=== PATIENT | male | born 1970 | race Caucasian/White ===

== ENCOUNTER 2019-04-21 10:25 | Emergency (ER) | payer OTHER, MEDICAID, SELFPAY ==
[2019-04-21 10:47] VITALS: BP 128/86; PULSE 86; RESP 18; TEMP 36.4; O2SAT 98; BMI 23.9
[2019-04-21 12:57] LABS: Add Manual Diff / Slide Review NO; Basophils Absolute Auto 0 /uL (0-100); Basophils Percent Auto 0.1 % (0-2); Eosinophils Absolute Auto 100 /uL (0-450); Eosinophils Percent Auto 0.4 % (2-4); Hemoglobin 12.5 g/dL (13.5-17.5); Lymphocytes Absolute Auto 2500 /uL (1100-4500); Lymphocytes Percent Auto 13.4 % (25-40); Mean Corpuscular Hemoglobin 28.2 PG (26-34); Mean Corpuscular Volume 85.3 fL (80-100); Monocytes Absolute Auto 1200 /uL (0-900); Monocytes Percent Auto 6.4 % (3-14); Neutrophils Absolute Auto 14700 /uL (1500-7000); Neutrophils Percent Auto 79.7 % (50-75); Platelet Count 622 X10^3/uL (150-400); Red Blood Cell Count 4.45 X10^6/uL (4.5-5.9); White Blood Cell Count 18.4 X10^3/uL (4.5-11.0)
[2019-04-21 13:02] VITALS: BP 131/80; PULSE 73; RESP 17; O2SAT 97
[2019-04-21 13:09] LABS: Alanine Aminotransferase 35 IU/L (21-72); Albumin 3.8 g/dL (3.5-5.0); Albumin Globulin Ratio 0.9 (1.0-2.8); Alkaline Phosphatase 212 U/L (38-126); Aspartate Aminotransferase 29 IU/L (17-59); BUN Creatinine Ratio 44.3 (6-22); Bilirubin Total 0.6 mg/dL (0.2-1.3); Blood Urea Nitrogen 31 mg/dL (9-20); Calcium 9.8 mg/dL (8.4-10.2); Carbon Dioxide 22 mmol/L (22-32); Chloride 95 mmol/L (98-107); Estimated Glomerular Filt Rate > 60.0 mL/min (>60); Globulin 4.2 g/dL (1.7-4.1); HEMOLYSIS < 15 (0-50); Potassium 5.1 mmol/L (3.4-5.1); Sodium 128 mmol/L (137-145)
[2019-04-21 13:40] LABS: Erythrocyte Sedimentation Rate 60 MM/HR (0-15)
[2019-04-21 13:47] LABS: Glucose 497 mg/dL (70-100)
[2019-04-21 14:02] LABS: Procalcitonin 0.05 ng/mL (<0.5)
--- NOTE | 2019-04-21 14:51 | ED_ITS ---
HPI - Wound/Laceration <PRASHANT Roblero - Last Filed: 04/21/19 20:25> General Chief Complaint: Wound/Laceration Stated Complaint: RT WRIST PAIN AFTER SURGERY Time Seen by Provider: 04/21/19 12:26 Source: patient Mode of arrival: Ambulatory Limitations: no limitations History of Present Illness HPI narrative: The patient is a 48-year-old male current smoker who presents who with a chief complaint of needing his lab work checked. He states that he was discharged from [facility] on the 10th after surgery on his wrist. He states he had an abscess on his right wrist. He states he has had 2 surgeries for this, and was supposed to follow up with [facility] Dr Richter today at 10:00 a.m.. However he went to the office and was closed for the holiday. He denies any fevers nausea vomiting or diarrhea. He states he has been taking Levaquin as instructed on discharge. He is requesting that we debride his wound. He states he would like us to check his white blood cell count, as he is concerned about sepsis. He states he has been eating and drinking well. He states tomorrow is the last day of his prednisone burst. Related Data Home Medications Medication Instructions Recorded Confirmed levofloxacin 750 mg PO DAILY 04/21/19 04/21/19 lisinopril 40 mg PO DAILY 04/21/19 04/21/19 oxycodone-acetaminophen 1 tab PO Q6H PRN 04/21/19 04/21/19 prednisone See Rx Instructions .ROUTE .COMPLEX 04/21/19 Previous Rx's Medication Instructions Recorded metformin 500 mg PO BID #30 tab 04/21/19 Allergies Allergy/AdvReac Type Severity Reaction Status Date / Time Penicillins Allergy Rash Verified 04/21/19 10:57 Review of Systems <PRASHANT Roblero - Last Filed: 04/21/19 20:25> Review of Systems Narrative: GENERAL: Denies chills, fatigue, malaise, fever, sweats. HEENT: Denies sinus pain, ear pain, sore throat, difficulty swallowing, dizziness. RESPIRATORY: Denies dyspnea, cough, wheezing, hemoptysis, sputum. CARDIOVASCULAR: Denies chest pain, palpitations, orthopnea, edema, GASTROINTESTINAL: Denies nausea, vomiting, abdominal pain, diarrhea, constipation, melena. : Denies dysuria, frequency, incontinence, hematuria, urinary retention. MUSCULOSKELETAL: See HPI SKIN: HPI NEUROLOGIC: Denies weakness, headache, numbness, change in speech, confusion, seizures, incoordination. PSYCHIATRIC: No concerning psychosocial issues. 12 point review of systems is negative except for those stated above Exam <Leanne AguilarINDIRA prestonP-BC - Last Filed: 04/21/19 20:25> Narrative Exam Narrative: GENERAL: This is a well-nourished, well-developed patient, no acute distress HEAD: Atraumatic. Normocephalic. No temporal or scalp tenderness. EYES: Pupils equal round and reactive. Extraocular motions intact. No scleral icterus. No injection or drainage. ENT: Nose without bleeding, purulent drainage or septal hematoma. Throat without erythema, tonsillar hypertrophy or exudate. Uvula midline. Airway patent. NECK: Trachea midline. No JVD or lymphadenopathy. Supple, nontender, no meninge al signs. CARDIOVASCULAR: Regular rate and rhythm without murmurs, gallops, or rubs. RESPIRATORY: Clear to auscultation. Breath sounds equal bilaterally. No wheezes, rales, or rhonchi. No cough. No increased respiratory effort. No accessory muscle use GASTROINTESTINAL: Abdomen soft, non-tender, nondistended. No hepato- splenomegaly, or palpable masses. No guarding. EXTREMITIES: 10 cm postoperative wound on anterior aspect of right wrist. Sutures are intact. No extending redness. 0.25 cm separation of. Slight purulence drainage noted. 7 cm on palmar aspect of right wrist. Well approxim ated. No spreading redness. No drainage noted. Positive radial pulse right wrist. Moving right fingers. Decreased flexion extension right wrist. Capillary refill less than 2 seconds all fingers right hand. BACK: Nontender without deformity or crepitance. No flank tenderness. NEURO: AOx3. SKIN: See extremity exam Initial Vital Signs Initial Vital Signs: Vital Signs Temperature 97.5 F L 04/21/19 10:47 Pulse Rate 86 04/21/19 10:47 Respiratory Rate 18 04/21/19 10:47 Blood Pressure 128/86 04/21/19 10:47 Pulse Oximetry 98 04/21/19 10:47 <Jarek Saucedo DO - Last Filed: 04/22/19 07:04> Initial Vital Signs Initial Vital Signs: Vital Signs Temperature 97.5 F L 04/21/19 10:47 Pulse Rate 86 04/21/19 10:47 Respiratory Rate 18 04/21/19 10:47 Blood Pressure 128/86 04/21/19 10:47 Pulse Oximetry 98 04/21/19 10:47 Course <SEAN Roblero - Last Filed: 04/21/19 20:25> Orders Ordered: ED Orders 04/21/19 12:50 C-Reactive Protein Quant Stat Complete Blood Count AUTO DIFF Stat Comprehensive Metabolic Panel Stat Erythrocyte Sedimentation Rate Stat Procalcitonin Stat Vital Signs Vital signs: Vital Signs - 8 hr 04/21/19 13:02 04/21/19 15:32 Pulse Rate 73 73 Respiratory Rate 17 17 Blood Pressure [Left Arm] 131/80 142/88 H Pulse Oximetry 97 98 <Jarek Saucedo DO - Last Filed: 04/22/19 07:04> Orders Ordered: ED Orders 04/21/19 12:50 C-Reactive Protein Quant Stat Complete Blood Count AUTO DIFF Stat Comprehensive Metabolic Panel Stat Erythrocyte Sedimentation Rate Stat Procalcitonin Stat Vital Signs Vital signs: Vital Signs - 8 hr 04/21/19 13:02 04/21/19 15:32 Pulse Rate 73 73 Respiratory Rate 17 17 Blood Pressure [Left Arm] 131/80 142/88 H Pulse Oximetry 97 98 MDM - Wound/Laceration <SEAN Roblero - Last Filed: 04/21/19 20:25> Lab Data Result diagrams: 04/21/19 12:50 04/21/19 12:50 Labs: Lab Results 04/21/19 04/21/19 04/21/19 Range/Units 12:50 12:50 12:50 WBC 18.4 H (4.5-11.0) X10^3/uL RBC 4.45 L (4.5-5.9) X10^6/uL Hgb 12.5 L (13.5-17.5) g/dL Hct 38.0 L (41-53) % MCV 85.3 (80-100) fL MCH 28.2 (26-34) PG MCHC 33.0 (30-36) % RDW 16.0 H (11.6-14.8) % Plt Count 622 H (150-400) X10^3/uL Neut % (Auto) 79.7 H (50-75) % Lymph % (Auto) 13.4 L (25-40) % Logan % (Auto) 6.4 (3-14) % Eos % (Auto) 0.4 L (2-4) % Baso % (Auto) 0.1 (0-2) % Neut # (Auto) 41587 H (1363-3397) /uL Lymph # (Auto) 2500 (4901-5462) /uL Logan # (Auto) 1200 H (0-900) /uL Eos # (Auto) 100 (0-450) /uL Baso # (Auto) 0 (0-100) /uL ESR 60 H (0-15) MM/HR Sodium 128 L (137-145) mmol/L Potassium 5.1 (3.4-5.1) mmol/L Chloride 95 L (98-107) mmol/L Carbon Dioxide 22 (22-32) mmol/L BUN 31 H (9-20) mg/dL Creatinine 0.70 (0.66-1.25) mg/dL Estimated GFR > 60.0 (>60) mL/min BUN/Creatinine Ratio 44.3 H (6-22) Glucose 497 H* (70-100) mg/dL Calcium 9.8 (8.4-10.2) mg/dL Total Bilirubin 0.6 (0.2-1.3) mg/dL AST 29 (17-59) IU/L ALT 35 (21-72) IU/L Alkaline Phosphatase 212 H (38-126) U/L C-Reactive Protein 0.7 (<1.0) mg/dL Total Protein 8.0 (6.3-8.2) g/dL Albumin 3.8 (3.5-5.0) g/dL Globulin 4.2 H (1.7-4.1) g/dL Albumin/Globulin Ratio 0.9 L (1.0-2.8) Procalcitonin 0.05 (<0.5) ng/mL [facility] Narrative Medical decision making narrative: The patient is a 48-year-old male who presents with a chief complaint of requesting lab work and postoperative infection. I discussed that we could get lab work, but I would have to refer to [facility] for procedures. The patient has leukocytosis, and an elevated ESR, however it is lower than his previous level. His CRP is also significantly decreased. His procalcitonin is negative for sepsis. The patient does not appear septic, he is normotensive, afebrile, non tachycardic. I discussed the patient at length with Dr. Richter from [facility], who states that the patient can see him in follow-up tomorrow at 10:00 a.m.. Of note the patient was noted to be hyperglycemic on his lab work. This is likely partially due to his infection and partially due to his steroid burst, which likely exacerbated an underlying hyperglycemia or diabetes. I ink give the patient a prescription for metformin. I discussed at length the importance of follow-up with his primary care provider. He has an appointment for 4 days from now. I discussed at length follow up with Orthopedics in PCP. Discussed coming back to the emergency department for any acute concerns such as chest pain, shortness of breath, inability keep down fluids etc. Patient has no questions or concerns upon discharge and states understanding of return precautions as well as follow-up care. <Jarek Saucedo, DO - Last Filed: 04/22/19 07:04> Lab Data Labs: Lab Results 04/21/19 04/21/19 04/21/19 Range/Units 12:50 12:50 12:50 WBC 18.4 H (4.5-11.0) X10^3/uL RBC 4.45 L (4.5-5.9) X10^6/uL Hgb 12.5 L (13.5-17.5) g/dL Hct 38.0 L (41-53) % MCV 85.3 (80-100) fL MCH 28.2 (26-34) PG MCHC 33.0 (30-36) % RDW 16.0 H (11.6-14.8) % Plt Count 622 H (150-400) X10^3/uL Neut % (Auto) 79.7 H (50-75) % Lymph % (Auto) 13.4 L (25-40) % Logan % (Auto) 6.4 (3-14) % Eos % (Auto) 0.4 L (2-4) % Baso % (Auto) 0.1 (0-2) % Neut # (Auto) 96483 H (3332-0819) /uL Lymph # (Auto) 2500 (4479-1764) /uL Logan # (Auto) 1200 H (0-900) /uL Eos # (Auto) 100 (0-450) /uL Baso # (Auto) 0 (0-100) /uL ESR 60 H (0-15) MM/HR Sodium 128 L (137-145) mmol/L Potassium 5.1 (3.4-5.1) mmol/L Chloride 95 L (98-107) mmol/L Carbon Dioxide 22 (22-32) mmol/L BUN 31 H (9-20) mg/dL Creatinine 0.70 (0.66-1.25) mg/dL Estimated GFR > 60.0 (>60) mL/min BUN/Creatinine Ratio 44.3 H (6-22) Glucose 497 H* (70-100) mg/dL Calcium 9.8 (8.4-10.2) mg/dL Total Bilirubin 0.6 (0.2-1.3) mg/dL AST 29 (17-59) IU/L ALT 35 (21-72) IU/L Alkaline Phosphatase 212 H (38-126) U/L C-Reactive Protein 0.7 (<1.0) mg/dL Total Protein 8.0 (6.3-8.2) g/dL Albumin 3.8 (3.5-5.0) g/dL Globulin 4.2 H (1.7-4.1) g/dL Albumin/Globulin Ratio 0.9 L (1.0-2.8) Procalcitonin 0.05 (<0.5) ng/mL Discharge Plan Departure Patient Disposition: Home Clinical Impression: Encounter for wound re-check, Elevated blood sugar Discharge Date/Time: 04/21/19 15:40 Instructions: DI for Hyperglycemia -- Adult, DI for Wound Infection Activity Restrictions/Additional Instructions: Overall your lab work today is reassuring. However we found your blood sugar to be very elevated. I have given you a prescription for metformin to help keep your blood sugar in the normal range. Please follow up with Orthopedics at 10:00 a.m. as they arranged. Please follow up with primary care provider in a few days as previously arranged. Please monitor for signs of worsening including fever, inability keep down fluids etc Please come back to emergency department for any acute concerns. Prescriptions: New metformin 500 mg tablet 500 mg PO BID Qty: 30 RF: 0 No Action prednisone 10 mg tablet See Rx Instructions .ROUTE .COMPLEX RF: 0 oxycodone-acetaminophen 10-325 mg tablet 1 tab PO Q6H PRN (Reason: pain) RF: 0 levofloxacin 750 mg tablet 750 mg PO DAILY RF: 0 lisinopril 40 mg tablet 40 mg PO DAILY RF: 0 <Jarek Saucedo DO - Last Filed: 04/22/19 07:04> Sign Out Provider Sign Out Attestation: I was available for consultation during this patient's emergency department visit. This chart is signed by myself for administrative purposes only. I did not have direct contact with this patient during this visit. They were seen independently by the APC.
[2019-04-21 14:59] LABS: C-Reactive Protein Quant 0.7 mg/dL (<1.0)
[2019-04-21 15:32] VITALS: BP 142/88; PULSE 73; RESP 17; O2SAT 98
== END 2019-04-21 15:40 | disposition home or self-care (01) ==
PROVIDERS: Emergency Provider Nurse Practitioner Family
DX: Z51.89 Encounter for other specified aftercare (principal); M25.531 Pain in right wrist; R73.9 Hyperglycemia, unspecified
CPT/HCPCS: 36415; 80053; 84145; 85025; 85651; 86140; 99283

== ENCOUNTER 2019-04-22 08:58 | Inpatient (IN) | payer OTHER, MEDICAID, SELFPAY ==
[2019-04-22] VITALS (22 sets, daily range): BP systolic 92–149; BP diastolic 54–81; PULSE 66–91; RESP 12–20; TEMP 36.3–37.2; O2SAT 92–100; BMI 24.0
--- NOTE | 2019-04-22 09:08 | ED.GENADULT ---
HPI - General Adult General Chief complaint: Extremity Injury, Upper Stated complaint: nausea/vomiting/right arm pain Time Seen by Provider: 04/22/19 09:00 Source: patient Mode of arrival: Ambulatory Limitations: no limitations History of Present Illness HPI narrative: Patient is a 48-year-old male with a known right wrist wound that is being managed by the Orthopedic Department at [facility]. He was seen here in the emergency department yesterday because he could not get in to see them because the office was closed for the holiday. During his visit yesterday patient was noted to be hyperglycemic. He has no prior diagnosis of diabetes. Was started on metformin. Took 1 dose of this last evening. The provider who saw him yesterday did get him set up with another appointment today at 1000 hours with the Orthopedic Department. Patient comes the emergency department today because this morning he states that he ?felt sick ?had nausea and vomiting. Does have pain in his right wrist. Related Data Home Medications Medication Instructions Recorded Confirmed levofloxacin 750 mg PO DAILY 04/21/19 04/22/19 lisinopril 40 mg PO DAILY 04/21/19 04/22/19 oxycodone-acetaminophen 1 tab PO Q6H PRN 04/21/19 04/22/19 prednisone See Rx Instructions .ROUTE .COMPLEX 04/21/19 04/22/19 Previous Rx's Medication Instructions Recorded metformin 500 mg PO BID #30 tab 04/21/19 Allergies Allergy/AdvReac Type Severity Reaction Status Date / Time Penicillins Allergy Rash Verified 04/21/19 10:57 Review of Systems Constitutional Constitutional: Reports body ache(s) and Denies fever(s) Cardiovascular Cardiovascular: Denies chest pain and Denies dyspnea Respiratory Respiratory: Denies dyspnea Gastrointestinal Gastrointestinal: Reports nausea and Reports vomiting Musculoskeletal Comments: Right wrist pain Integumentary/Breasts Comments: Open wound to the right wrist Hematologic/Lymphatic Hematologic/Lymphatic: Denies easy bleeding and Denies easy bruising Patient History Medical History Medical History Elevated blood sugar (Inactive) Social History Social History marital status: household members: significant other lives independently: Yes Exam Initial Vital Signs Initial Vital Signs: Vital Signs Temperature 97.3 F L 04/22/19 09:36 Pulse Rate 91 H 04/22/19 09:36 Respiratory Rate 20 04/22/19 09:36 Blood Pressure 92/69 04/22/19 09:36 Pulse Oximetry 97 04/22/19 09:36 Const General: disheveled and No ill appearing Orientation: alert and awake [facility] Head: normal to inspection and normocephalic Resp Effort & Inspection: normal respiratory effort Auscultation: clear to auscultation bilaterally Cardio Rate: regular rate Rhythm: regular rhythm GI Inspection: non-distended Palpation: soft, No firm and No tender Skin Other: Patient with a open wound on the dorsum of his right wrist. Is not actively bleeding. Does have granulation tissue. Mattress sutures in place. Neuro General: alert and awake Cognition: normal cognition Speech: speech normal Extrem General: capillary refill normal Psych Appearance: grossly normal and well kempt Course Orders Ordered: ED Orders 04/22/19 10:22 C-Reactive Protein Quant Stat Erythrocyte Sedimentation Rate Stat 04/22/19 11:48 CT UE RT w con Stat Fentanyl (Sublimaze) 50 mcg IV Q5MIN PRN PRN Reason: Pain, Moderate (4-6) Lactated Ringer's (Lactated Ringers) 1,000 mls @ 100 mls/hr IV NOW ONE Stop: 04/23/19 02:41 Last Admin: 04/22/19 17:05 Dose: 100 mls/hr Documented by: Infusion: 04/22/19 17:05 Dose: 100 mls/hr Documented by: Admin: 04/22/19 16:43 Dose: 100 mls/hr Documented by: KEVIN Metoclopramide HCl (Reglan) 10 mg IV NOW PRN PRN Reason: Nausea And Vomiting Ondansetron HCl (Zofran) 4 mg IV NOW PRN PRN Reason: Nausea And Vomiting Discontinued Medications Sodium Chloride 3,000 ml/ (Gentamicin Sulfate 240 mg) 0 ml IRR NOW ONE Stop: 04/22/19 17:09 Last Admin: 04/22/19 17:08 Dose: 3,006 ml Documented by: VIKTORIYA Hydromorphone HCl (Dilaudid) 0.5 mg IV Q5MIN PRN PRN Reason: Pain, Moderate (4-6) Last Admin: 04/22/19 18:20 Dose: 0.5 mg Documented by: Admin: 04/22/19 18:15 Dose: 0.5 mg Documented by: Admin: 04/22/19 18:10 Dose: 0.5 mg Documented by: Admin: 04/22/19 18:05 Dose: 0.5 mg Documented by: Admin: 04/22/19 18:00 Dose: 0.5 mg Documented by: Admin: 04/22/19 17:55 Dose: 0.5 mg Documented by: Admin: 04/22/19 17:50 Dose: 0.5 mg Documented by: Admin: 04/22/19 17:45 Dose: 0.5 mg Documented by: ROSIO Sodium Chloride (Normal Saline 0.9%) 1,000 mls @ 1,000 mls/hr IV BOLUS ONE Stop: 04/22/19 10:05 Last Infusion: 04/22/19 10:48 Dose: 0 mls/hr Documented by: Admin: 04/22/19 09:30 Dose: 1,000 mls/hr Documented by: LETI Vancomycin HCl (Vancomycin) 1,000 mg in 200 mls @ 200 mls/hr IV NOW ONE Stop: 04/22/19 17:09 Last Admin: 04/22/19 17:21 Dose: 200 mls/hr Documented by: ELIZABETH Ketorolac Tromethamine (Toradol) 30 mg IV NOW ONE Stop: 04/22/19 11:57 Last Admin: 04/22/19 12:08 Dose: 30 mg Documented by: LETI Morphine Sulfate (Morphine) 4 mg IV NOW ONE Stop: 04/22/19 15:36 Last Admin: 04/22/19 15:44 Dose: 4 mg Documented by: LETI Ondansetron HCl (Zofran) 4 mg IV NOW ONE Stop: 04/22/19 09:07 Last Admin: 04/22/19 09:30 Dose: 4 mg Documented by: LETI Oxycodone/Acetaminophen (Percocet 5/325) 1 tab PO NOW ONE Stop: 04/22/19 15:36 Vital Signs Vital signs: Vital Signs - 8 hr 04/22/19 11:37 04/22/19 12:30 04/22/19 14:35 Temperature Pulse Rate 88 68 82 Respiratory Rate 18 18 18 Blood Pressure Blood Pressure [Left Arm] 104/70 114/67 106/67 Pulse Oximetry 100 97 04/22/19 15:00 04/22/19 15:47 Temperature 97.8 F Pulse Rate 81 77 Respiratory Rate 16 16 Blood Pressure 102/79 Blood Pressure [Left Arm] 107/70 Pulse Oximetry 92 97 Medical Decision Making Lab Data Lab results reviewed: Yes I reviewed the patient's lab results. Result diagrams: 04/22/19 09:26 04/22/19 09:26 Labs: Lab Results 04/22/19 04/22/19 04/22/19 Range/Units 09:22 09:26 09:26 WBC 22.0 H (4.5-11.0) X10^3/uL RBC 4.64 (4.5-5.9) X10^6/uL Hgb 13.0 L (13.5-17.5) g/dL Hct 39.1 L (41-53) % MCV 84.3 (80-100) fL MCH 28.0 (26-34) PG MCHC 33.2 (30-36) % RDW 15.7 H (11.6-14.8) % Plt Count 711 H (150-400) X10^3/uL Neut % (Auto) 71.6 (50-75) % Lymph % (Auto) 19.5 L (25-40) % Douglas % (Auto) 7.9 (3-14) % Eos % (Auto) 0.5 L (2-4) % Baso % (Auto) 0.5 (0-2) % Neut # (Auto) 30187 H (9920-4452) /uL Lymph # (Auto) 4300 (9191-4583) /uL Douglas # (Auto) 1700 H (0-900) /uL Eos # (Auto) 100 (0-450) /uL Baso # (Auto) 100 (0-100) /uL Platelet Estimate Increased on smear RBC Morphology See Poikilocytosis 1+ H ESR (0-15) MM/HR VBG pH 7.36 (7.33-7.43) VBG pCO2 37.6 L (45-50) mmHg VBG pO2 52 H (35-45) mmHg VBG HCO3 21 L (23-28) mmol/L VBG Total CO2 23 L (24-29) mmol/L VBG O2 Saturation 85 H (70-75) % VBG Base Excess -4.0 L (0-4) mmol/L Sodium (137-145) mmol/L Potassium (3.4-5.1) mmol/L Chloride (98-107) mmol/L Carbon Dioxide (22-32) mmol/L BUN (9-20) mg/dL Creatinine (0.66-1.25) mg/dL Estimated GFR (>60) mL/min BUN/Creatinine Ratio (6-22) Glucose (70-100) mg/dL Lactate (0.7-2.1) mmol/L Calcium (8.4-10.2) mg/dL Phosphorus (2.5-4.5) mg/dL Magnesium (1.6-2.3) mg/dL Total Bilirubin (0.2-1.3) mg/dL AST (17-59) IU/L ALT (21-72) IU/L Alkaline Phosphatase (38-126) U/L C-Reactive Protein (<1.0) mg/dL Total Protein (6.3-8.2) g/dL Albumin (3.5-5.0) g/dL Globulin (1.7-4.1) g/dL Albumin/Globulin Ratio (1.0-2.8) Lipase (23-300) U/L Procalcitonin 0.15 (<0.5) ng/mL Ketones (<0.27) mmol/L 04/22/19 04/22/19 04/22/19 Range/Units 09:26 09:26 09:26 WBC (4.5-11.0) X10^3/uL RBC (4.5-5.9) X10^6/uL Hgb (13.5-17.5) g/dL Hct (41-53) % MCV (80-100) fL MCH (26-34) PG MCHC (30-36) % RDW (11.6-14.8) % Plt Count (150-400) X10^3/uL Neut % (Auto) (50-75) % Lymph % (Auto) (25-40) % Douglas % (Auto) (3-14) % Eos % (Auto) (2-4) % Baso % (Auto) (0-2) % Neut # (Auto) (2730-8132) /uL Lymph # (Auto) (2119-5158) /uL Douglas # (Auto) (0-900) /uL Eos # (Auto) (0-450) /uL Baso # (Auto) (0-100) /uL Platelet Estimate RBC Morphology Poikilocytosis ESR (0-15) MM/HR VBG pH (7.33-7.43) VBG pCO2 (45-50) mmHg VBG pO2 (35-45) mmHg VBG HCO3 (23-28) mmol/L VBG Total CO2 (24-29) mmol/L VBG O2 Saturation (70-75) % VBG Base Excess (0-4) mmol/L Sodium 133 L (137-145) mmol/L Potassium 4.5 (3.4-5.1) mmol/L Chloride 99 (98-107) mmol/L Carbon Dioxide 22 (22-32) mmol/L BUN 35 H (9-20) mg/dL Creatinine 1.40 H (0.66-1.25) mg/dL Estimated GFR 53.6 L (>60) mL/min BUN/Creatinine Ratio 25.0 H (6-22) Glucose 250 H D (70-100) mg/dL Lactate 2.7 H (0.7-2.1) mmol/L Calcium 10.1 (8.4-10.2) mg/dL Phosphorus 5.3 H (2.5-4.5) mg/dL Magnesium 1.7 (1.6-2.3) mg/dL Total Bilirubin 0.7 (0.2-1.3) mg/dL AST 37 (17-59) IU/L ALT 31 (21-72) IU/L Alkaline Phosphatase 207 H (38-126) U/L C-Reactive Protein (<1.0) mg/dL Total Protein 7.9 (6.3-8.2) g/dL Albumin 3.9 (3.5-5.0) g/dL Globulin 4.0 (1.7-4.1) g/dL Albumin/Globulin Ratio 1.0 (1.0-2.8) Lipase 88 (23-300) U/L Procalcitonin (<0.5) ng/mL Ketones 0.13 (<0.27) mmol/L 04/22/19 04/22/19 04/22/19 Range/Units 10:22 10:22 11:43 WBC (4.5-11.0) X10^3/uL RBC (4.5-5.9) X10^6/uL Hgb (13.5-17.5) g/dL Hct (41-53) % MCV (80-100) fL MCH (26-34) PG MCHC (30-36) % RDW (11.6-14.8) % Plt Count (150-400) X10^3/uL Neut % (Auto) (50-75) % Lymph % (Auto) (25-40) % Douglas % (Auto) (3-14) % Eos % (Auto) (2-4) % Baso % (Auto) (0-2) % Neut # (Auto) (6376-1272) /uL Lymph # (Auto) (9704-3582) /uL Douglas # (Auto) (0-900) /uL Eos # (Auto) (0-450) /uL Baso # (Auto) (0-100) /uL Platelet Estimate RBC Morphology Poikilocytosis ESR 57 H (0-15) MM/HR VBG pH (7.33-7.43) VBG pCO2 (45-50) mmHg VBG pO2 (35-45) mmHg VBG HCO3 (23-28) mmol/L VBG Total CO2 (24-29) mmol/L VBG O2 Saturation (70-75) % VBG Base Excess (0-4) mmol/L Sodium (137-145) mmol/L Potassium (3.4-5.1) mmol/L Chloride (98-107) mmol/L Carbon Dioxide (22-32) mmol/L BUN (9-20) mg/dL Creatinine (0.66-1.25) mg/dL Estimated GFR (>60) mL/min BUN/Creatinine Ratio (6-22) Glucose (70-100) mg/dL Lactate 1.7 (0.7-2.1) mmol/L Calcium (8.4-10.2) mg/dL Phosphorus (2.5-4.5) mg/dL Magnesium (1.6-2.3) mg/dL Total Bilirubin (0.2-1.3) mg/dL AST (17-59) IU/L ALT (21-72) IU/L Alkaline Phosphatase (38-126) U/L C-Reactive Protein 1.3 H (<1.0) mg/dL Total Protein (6.3-8.2) g/dL Albumin (3.5-5.0) g/dL Globulin (1.7-4.1) g/dL Albumin/Globulin Ratio (1.0-2.8) Lipase (23-300) U/L Procalcitonin (<0.5) ng/mL Ketones (<0.27) mmol/L Point of Care Testing Glucose POC 232 Point of care testing: Point of Care Testing Glucose POC [address] upper extremity: Radiologist's impression: [address] [address] [address] Scan Report Signed Patient: Jono ChaoMR#: [id number] : 1970Acct:[id number] Age/Sex: 48 / MDate of Service: 04/22/19 Loc: ED Accession Number: [id number] Procedure: CT UE RT w con Ordering Provider: Jarek Saucedo D.O. PROCEDURE: CT UE RT W CON INDICATIONS: possible for abscess, post right hand/wrist surgery TECHNIQUE: After the administration of intravenous contrast, 3 mm axial sections acquired of the right hand, wrist, forearm and portions of the arm more proximally to include the shoulder joint and portions of the neck, with coronal and sagittal reformats. COMPARISON: None. FINDINGS: Image quality: Excellent. Bones: No osteomyelitis seen. Soft tissues: Within the soft tissues ventral to the proximal carpal row and extending distally to the area ventral to the base of the second through fifth metacarpal bones there are approximately 6 separate rim enhancing fluid collections, each worrisome or 4 representing loculated abscess formation. Most distally, near the base of the second-third metacarpal bone there is an ovoid fluid collection measuring up to 11 x 20 mm. Slightly more proximally and medially is a 1.1 x 0.9 mm fluid collection between the area of the base of the fourth and fifth metacarpal bones (images 203 and 204, respectively). Slightly more proximally, laterally, is a 5 x 10 mm rim-enhancing fluid collection (image 199) and more medially and slightly more proximally is a 1.2 x 1.1 cm rim enhancing fluid collection. At the same axial level just beneath the skin surface is an additional 8 x 12 mm fluid collection, both seen on image 198. Slightly more proximally, laterally, is a thin fluid collection seen on series 9 image 197 measuring up to 3 x 14 mm. This traverses towards the hook of the hamate and therefore its transverse dimension is likely larger but may be septated in that area.. This is best seen on image 197. IMPRESSION: Prominent edema and cutaneous and subcutaneous fluid radiodensity is present indicating generalized inflammation involving the hand and wrist area. As discussed above multiple discrete loculated rim-enhancing fluid collections are present along the ventral aspect of the hand and wrist and the reported operative bed area. Multifocal abscess formation is presumed to be present without underlying osteomyelitis are visualized gas within the soft tissues. Dictated by: Axel Lamb M.D. on 04/22/2019 at 12:35 Approved by: Axel Lamb M.D. on 04/22/2019 at 12:44 [facility] Narrative Medical decision making narrative: Patient's blood sugar is better today. He is not in DKA. He does have worsening of his inflammatory markers to include an increase in his ESR/CRP/white blood cell count/lactate/procalcitonin. I did discuss the case with his operative orthopedic provider at [facility] who stated that as of this afternoon he would not be in the office or operating for the next week. There were no other orthopedic providers at [facility] during this time as well. I discussed case with the hospitalist there who stated that he did not feel like he should accept the patient since there were no orthopedic providers there to care for him. I discussed the case with the orthopedic provider at this hospital who recommended a CT scan of his arm. This was obtained which was concerning for multiple small abscesses around the wound site. I do of suspicion that this is the cause of his worsening symptoms. When I talked with the orthopedic provider at [facility] there was some discussion that if his symptoms worsen that he potentially would need the services of a hand surgeon. I did discuss the case with the hospitalist at [facility] who stated that he would be happy to accept the patient if there hand provider would be willing to see the patient. I did discuss the case with their plastic surgeon who was covering for Hand surgery who was very reluctant to take the patient. He felt that the patient ought to be sent back to the initial surgical provider. I then discussed the case with Orthopedics at [facility] who also was not willing to accept the patient again stating that he felt that the patient ought to go back to his initial surgical provider as well. [facility] was full. [facility] was also full. I then contacted Dr Sanchez orthopedic provider at this hospital who did then come and evaluate the patient in the emergency department. After her evaluation she stated that she would be willing to take the patient to the operating room to wash out his wound. The patient was admitted to Dr. Savage under the hospitalist service. Discharge Plan Departure Patient Disposition: Admitted As Inpatient Clinical Impression: Cellulitis Discharge Date/Time: 04/22/19 15:49 Admit Date/Time: 04/22/19 15:47 Admit Provider: Sangeeta Savage
[2019-04-22] MEDS: SODIUM CHLORIDE 0.9% 1,000 ML 1000 ML IV (09:30)
[2019-04-22] MEDS: ONDANSETRON 4 MG/2 ML INJ IV (09:30)
--- NOTE | 2019-04-22 09:39 | PC.NURSE ---
Pt arrived POV c/o R arm pain. recent surgery x 2 at [facility] for R arm abscesses. wound appears dehisced, infected, and draining yellow exudate. pt was supposed to go for FU today at [facility] in [place]. had vomiting x 1 at home which he reports made him feel better. afebrile in ED. restless. reports oxycontin at 8am. BP soft 90/50's and had syncopal episode x 1 at home. IV placed. pt hard stick. labs drawn and sent per order including lactate and BCx1. Lab called for 2nd set. IVF infusing and pt given zofran for nausea. awaiting further orders
[2019-04-22 09:50] LABS: Basophils Absolute Auto 100 /uL (0-100); Basophils Percent Auto 0.5 % (0-2); Eosinophils Absolute Auto 100 /uL (0-450); Eosinophils Percent Auto 0.5 % (2-4); Hematocrit 39.1 % (41-53); Lymphocytes Absolute Auto 4300 /uL (1100-4500); Lymphocytes Percent Auto 19.5 % (25-40); Mean Corpuscular HGB Conc 33.2 % (30-36); Mean Corpuscular Volume 84.3 fL (80-100); Monocytes Absolute Auto 1700 /uL (0-900); Monocytes Percent Auto 7.9 % (3-14); Neutrophils Absolute Auto 15800 /uL (1500-7000); Neutrophils Percent Auto 71.6 % (50-75); Platelet Count 711 X10^3/uL (150-400); Red Blood Cell Count 4.64 X10^6/uL (4.5-5.9); Red Cell Distribution Width 15.7 % (11.6-14.8)
[2019-04-22 09:52] LABS: Add Manual Diff / Slide Review SLIDE REVIEW
[2019-04-22 09:52] LABS: HCO3 VBG 21 mmol/L (23-28); PCO2 VBG 37.6 mmHg (45-50); PO2 VBG 52 mmHg (35-45); Total CO2 VBG 23 mmol/L (24-29); pH VBG 7.36 (7.33-7.43)
[2019-04-22 09:53] LABS: Oxygen Saturation VBG 85 % (70-75)
[2019-04-22 10:05] LABS: Alanine Aminotransferase 31 IU/L (21-72); Albumin 3.9 g/dL (3.5-5.0); Alkaline Phosphatase 207 U/L (38-126); Aspartate Aminotransferase 37 IU/L (17-59); Bilirubin Total 0.7 mg/dL (0.2-1.3); Blood Urea Nitrogen 35 mg/dL (9-20); Calcium 10.1 mg/dL (8.4-10.2); Carbon Dioxide 22 mmol/L (22-32); Chloride 99 mmol/L (98-107); Estimated Glomerular Filt Rate 53.6 mL/min (>60); Glucose 250 mg/dL (70-100); HEMOLYSIS < 15 (0-50); Lipase 88 U/L (23-300); Magnesium 1.7 mg/dL (1.6-2.3); Phosphorous 5.3 mg/dL (2.5-4.5); Potassium 4.5 mmol/L (3.4-5.1); Sodium 133 mmol/L (137-145); Total Protein 7.9 g/dL (6.3-8.2)
[2019-04-22 10:06] LABS: Ketones (Beta-Hydroxybutyrate) 0.13 mmol/L (<0.27); Lactate (Lactic Acid) 2.7 mmol/L (0.7-2.1)
[2019-04-22 10:21] LABS: Procalcitonin 0.15 ng/mL (<0.5)
[2019-04-22 10:27] LABS: Platelet Estimate Increased on smear; Poikilocytosis 1+; RBC Morphology See
[2019-04-22 10:40] LABS: C-Reactive Protein Quant 1.3 mg/dL (<1.0)
[2019-04-22 10:56] LABS: Erythrocyte Sedimentation Rate 57 MM/HR (0-15)
--- NOTE | 2019-04-22 11:37 | PC.NURSE ---
Repeat lactate drawn after fluid bolus. Pt taken for CT at this time.
[2019-04-22 11:42] LABS: Reflexed Lactate in 2 Hours Y
--- NOTE | 2019-04-22 11:48 | DI.CT.S_ITS ---
PROCEDURE: CT UE RT W CON INDICATIONS: possible for abscess, post right hand/wrist surgery TECHNIQUE: After the administration of intravenous contrast, 3 mm axial sections acquired of the right hand, wrist, forearm and portions of the arm more proximally to include the shoulder joint and portions of the neck, with coronal and sagittal reformats. COMPARISON: None. FINDINGS: Image quality: Excellent. Bones: No osteomyelitis seen. Soft tissues: Within the soft tissues ventral to the proximal carpal row and extending distally to the area ventral to the base of the second through fifth metacarpal bones there are approximately 6 separate rim enhancing fluid collections, each worrisome or 4 representing loculated abscess formation. Most distally, near the base of the second-third metacarpal bone there is an ovoid fluid collection measuring up to 11 x 20 mm. Slightly more proximally and medially is a 1.1 x 0.9 mm fluid collection between the area of the base of the fourth and fifth metacarpal bones (images 203 and 204, respectively). Slightly more proximally, laterally, is a 5 x 10 mm rim-enhancing fluid collection (image 199) and more medially and slightly more proximally is a 1.2 x 1.1 cm rim enhancing fluid collection. At the same axial level just beneath the skin surface is an additional 8 x 12 mm fluid collection, both seen on image 198. Slightly more proximally, laterally, is a thin fluid collection seen on series 9 image 197 measuring up to 3 x 14 mm. This traverses towards the hook of the hamate and therefore its transverse dimension is likely larger but may be septated in that area.. This is best seen on image 197. IMPRESSION: Prominent edema and cutaneous and subcutaneous fluid radiodensity is present indicating generalized inflammation involving the hand and wrist area. As discussed above multiple discrete loculated rim-enhancing fluid collections are present along the ventral aspect of the hand and wrist and the reported operative bed area. Multifocal abscess formation is presumed to be present without underlying osteomyelitis are visualized gas within the soft tissues. Dictated by: Axel Lamb M.D. on 04/22/2019 at 12:35 Approved by: Axel Lamb M.D. on 04/22/2019 at 12:44
[2019-04-22 11:56] LABS: Lactate 2HR (Lactic Acid Rflx) 1.7 mmol/L (0.7-2.1)
[2019-04-22] MEDS: KETOROLAC 60 MG/2 ML VIAL 30 MG IV (12:08)
--- NOTE | 2019-04-22 12:08 | PC.NURSE ---
Pt medicated for pain. given ice chips. NAD
--- NOTE | 2019-04-22 13:18 | PC.NURSE ---
OOB to BR with steady gait. reports feeling much better after tordol.
[2019-04-22] MEDS: MORPHINE 4 MG/ML INJ IV (15:44)
--- NOTE | 2019-04-22 15:47 | PC.NURSE ---
Report given to CULTURAL ANTHROPOLOGY PROFESSOR. pt taken to OR at this time. Consent obtained and in chart.
--- NOTE | 2019-04-22 16:11 | PM.HP.1 ---
History of Present Illness History of Present Illness Date Patient Seen: 04/22/19 Time Patient Seen: 16:01 Chief complaint: nausea/vomiting/right arm pain Narrative: This is a 48-year-old gentleman with a complex past medical history. He has previously been seen extensively at [facility]. He was admitted 04/09 after having problems with his right arm which was initially diagnosed with gout and subsequently with a streptococcal infection with deep infection. He underwent previous irrigation and debridement x2 by Dr. Dinero both dorsal and on the carpal canal. He was placed on antibiotics including penicillin which he developed a severe rash with the penicillin and then he was placed on steroids. He has now been seen at [facility] Emergency room 2 times with complaints of right arm pain and his labs have shown significantly elevated white blood cell count which is worsening. His blood sugar was 500 when he was seen in the emergency room yesterday. He is given a dose of metformin knee returns today saying that he is feeling worse and that he has had significant problems with diarrhea. He was not previously a diabetic. He is right-hand dominant he does have supportive family at bedside. His previous culture grew beta-hemolytic strep group G sensitivities were not previously run. Patient History Medical History Elevated blood sugar (Inactive) Social History marital status: lives independently: Yes Family & Social History Social History: lives independently Yes Safety & Behavioral: Feels Safe in Current Yes Environment Been Physically Hurt or No Threatened By a Person Meds Home Medications and Allergies Home Medications Medication Instructions Recorded Confirmed Type levofloxacin 750 mg PO DAILY 04/21/19 04/22/19 History lisinopril 40 mg PO DAILY 04/21/19 04/22/19 History metformin 500 mg PO BID #30 tab 04/21/19 04/22/19 Rx oxycodone-acetaminophen 1 tab PO Q6H PRN 04/21/19 04/22/19 History prednisone See Rx Instructions .ROUTE .COMPLEX 04/21/19 04/22/19 History Allergies Allergy/AdvReac Type Severity Reaction Status Date / Time Penicillins Allergy Rash Verified 04/21/19 10:57 Review of Systems Review of Systems Narrative: Notes fatigue, diarrhea, nausea, slowly worsening right arm pain but not severely worsening Exam Vital Signs (past 8 hours): - 04/22/19 09:36 04/22/19 10:16 04/22/19 11:37 Temperature 97.3 F L Pulse Rate 91 H 80 88 Respiratory Rate 20 16 18 Blood Pressure 92/69 Blood Pressure [Left Arm] 109/69 104/70 Pulse Oximetry 97 97 100 04/22/19 12:30 04/22/19 14:35 04/22/19 15:00 Temperature Pulse Rate 68 82 81 Respiratory Rate 18 18 16 Blood Pressure Blood Pressure [Left Arm] 114/67 106/67 107/70 Pulse Oximetry 97 92 04/22/19 15:47 Temperature 97.8 F Pulse Rate 77 Respiratory Rate 16 Blood Pressure 102/79 Blood Pressure [Left Arm] Pulse Oximetry 97 Oxygen Delivery Method Room Air Narrative Exam Narrative: HEENT patient appears mildly cachectic, he is slightly disheveled, he is alert and oriented, lungs are clear, cor regular rate and rhythm, is able to fire his finger flexors and extensors with trace motion is got an extensive wound on the dorsum of his right arm which there is purulent material expressed would like compression on the wound edge, his weight has a healing carpal tunnel incision with minimal pain with light compression across the carpal canal he can fire his finger flexors and extensors but only with trace motion and does note pain. There is no specific axillary our epicondylar adenopathy reason minimal erythema no evidence of gas or fluctuance. Objective Labs Result Diagrams: 04/22/19 09:26 04/22/19 09:26 Labs: Laboratory Results - last 24 hr 04/22/19 04/22/19 04/22/19 09:22 09:26 09:26 WBC 22.0 H RBC 4.64 Hgb 13.0 L Hct 39.1 L MCV 84.3 MCH 28.0 MCHC 33.2 RDW 15.7 H Plt Count 711 H Neut % (Auto) 71.6 Lymph % (Auto) 19.5 L [place] % (Auto) 7.9 Eos % (Auto) 0.5 L Baso % (Auto) 0.5 Neut # (Auto) 59924 H Lymph # (Auto) 4300 [place] # (Auto) 1700 H Eos # (Auto) 100 Baso # (Auto) 100 Platelet Estimate Increased on smear RBC Morphology See Poikilocytosis 1+ H ESR VBG pH 7.36 VBG pCO2 37.6 L VBG pO2 52 H VBG HCO3 21 L VBG Total CO2 23 L VBG O2 Saturation 85 H VBG Base Excess -4.0 L Sodium Potassium Chloride Carbon Dioxide BUN Creatinine Estimated GFR BUN/Creatinine Ratio Glucose Lactate Calcium Phosphorus Magnesium Total Bilirubin AST ALT Alkaline Phosphatase C-Reactive Protein Total Protein Albumin Globulin Albumin/Globulin Ratio Lipase Procalcitonin 0.15 Ketones 04/22/19 04/22/19 04/22/19 09:26 09:26 09:26 WBC RBC Hgb Hct MCV MCH MCHC RDW Plt Count Neut % (Auto) Lymph % (Auto) [place] % (Auto) Eos % (Auto) Baso % (Auto) Neut # (Auto) Lymph # (Auto) [place] # (Auto) Eos # (Auto) Baso # (Auto) Platelet Estimate RBC Morphology Poikilocytosis ESR VBG pH VBG pCO2 VBG pO2 VBG HCO3 VBG Total CO2 VBG O2 Saturation VBG Base Excess Sodium 133 L Potassium 4.5 Chloride 99 Carbon Dioxide 22 BUN 35 H Creatinine 1.40 H Estimated GFR 53.6 L BUN/Creatinine Ratio 25.0 H Glucose 250 H D Lactate 2.7 H Calcium 10.1 Phosphorus 5.3 H Magnesium 1.7 Total Bilirubin 0.7 AST 37 ALT 31 Alkaline Phosphatase 207 H C-Reactive Protein Total Protein 7.9 Albumin 3.9 Globulin 4.0 Albumin/Globulin Ratio 1.0 Lipase 88 Procalcitonin Ketones 0.13 04/22/19 04/22/19 04/22/19 10:22 10:22 11:43 WBC RBC Hgb Hct MCV MCH MCHC RDW Plt Count Neut % (Auto) Lymph % (Auto) [place] % (Auto) Eos % (Auto) Baso % (Auto) Neut # (Auto) Lymph # (Auto) [place] # (Auto) Eos # (Auto) Baso # (Auto) Platelet Estimate RBC Morphology Poikilocytosis ESR 57 H VBG pH VBG pCO2 VBG pO2 VBG HCO3 VBG Total CO2 VBG O2 Saturation VBG Base Excess Sodium Potassium Chloride Carbon Dioxide BUN Creatinine Estimated GFR BUN/Creatinine Ratio Glucose Lactate 1.7 Calcium Phosphorus Magnesium Total Bilirubin AST ALT Alkaline Phosphatase C-Reactive Protein 1.3 H Total Protein Albumin Globulin Albumin/Globulin Ratio Lipase Procalcitonin Ketones CT scan shows some slight fluctuance dorsally and fluid collection is collections in the palmar surface. CT scan was reviewed with Radiology did not show any evidence of gas or severe abscess. Assessment & Plan Assessment & Plan narrative: Impression is partially treated severe right upper extremity infection with concerning features of residual purulence drainage from his wound as well as progressively increasing white blood cell count. Unfortunately he was placed on steroids because of the severe reaction to penicillin. He was markedly hyperglycemic yesterday and he has a significantly elevated white blood cell count. CT scan suggests some residual fluid pockets. I have recommended that we take him to the operating room for repeat irrigation and debridement with plan to packed the dorsal wound open I may aspirate or open the volar wound.
[2019-04-22] MEDS: LACTATED RINGERS 1,000 ML 100 ML IV ×2 (16:43→17:05)
[2019-04-22] MEDS: SODIUM CHLORIDE IRRIG SOLUTION 3,000 ML, GENTAMICIN 240 MG IRR (17:08)
[2019-04-22] MEDS: VANCOMYCIN 1,000 MG/200 ML PIGGYBACK 200 MG IV (17:21)
--- NOTE | 2019-04-22 17:36 | SUR.OPER ---
Supine on padded OR bed, head on pillow, left arm secured on padded arm board at <90 degrees abduction, right arm draped free on black armtable,legs uncrossed, safety belt at thigh, tape over blanket over lower legs.
[2019-04-22] MEDS: HYDROMORPHONE 2 MG INJ 0.5 MG IV ×8 (17:45→18:20)
--- NOTE | 2019-04-22 17:51 | PM.OP.1 ---
Operative Date/Time/Diagnoses Date of procedure: 04/22/19 Time of procedure: 16:52 Pre-op diagnosis: Infected right hand and wrist with previous history of irrigation and debridement Post-op diagnosis: same (Septic right distal radial ulnar joint) Procedure & Clinicians Procedure: Right hand and wrist irrigation and debridement with excisional debridement of hematoma and some soft tissue within irrigation and debridement of the right wrist with a dorsal arthrotomy Same procedure as scheduled: Yes Indications: This is a 48-year-old gentleman who had a severe right arm infection was treated previously at [facility] and has undergone previous irrigation and debridement. He presented to [facility] Emergency room on 2 occasions with a progressively worsening white blood cell count and progressive worsening infection. This brought the operating room for irrigation and debridement as needed. Serious nature the procedure was discussed with the patient and family. Surgeon: Maida Sanchez Click Yes if Unassisted: Yes Anesthesia Type: General Operative Notes Findings: Moderate hematoma in the carpal canal no obvious recurrent infection. Obvious infection on the dorsum of the wrist with communication with the distal radial ulnar joint with gross purulence along the extensor carpi ulnaris and into the distal radial ulnar and ulnar side of the wrist joint, no specific marked abscess, mild necrotic tissue Closure Type: not applicable Specimen(s): other (Multiple cultures) Estimated Blood Loss (mL): 50 Blood products transfused: none Tourniquet time (min): 22 Procedure in detail: Patient brought to the operating room and underwent induction of a general anesthesia. A time-out was performed. Antibiotics were initially held in order to get additional specimens and cultures. The right upper extremities prepped draped standard sterile fashion with a high arm tourniquet was elevated for 22 minutes. Patient was prepped and draped sterilely. Dorsal and sutures were carefully removed. Dissection was carried out down to the wrist. There was purulence material encountered in the midportion of the wound directly over the distal radial ulnar joint and ulnar all carpal joint. Dissection was carried out down cultures were sent of the purulent material and deep material. The wound was then meticulously irrigated it was debrided removing a small amount of necrotic appearing tissue and hematoma as well as gross. The material. Hemostat was placed deep into the joint distal to the tip of the ulna. An and the joint was meticulously then irrigated with total of about 3 L of antibiotic saline. There was mild necrotic tissue and there was obvious purulence but as there was not a specific abscess or pus pocket the pocket. I also dissected along the area where he had previously had a [place] drain and there was some purulent material in that region also. Next attention was directed to the carpal canal. On the sutures removed from the carpal canal dissection was carried out down into the carpal canal. There was a fairly large hematoma on but no gross pus purulence. I specifically dissected gently underneath the median nerve which was noted to be intact and also looked in the along the palm thenar eminence and through the carpal canal to make sure there was no additional fluctuant pockets. The carpal canal was then meticulously irrigated with normal saline. Changed my gloves and felt it was appropriate to go ahead and close the carpal canal as I did not encounter any gross pus in the carpal canal. The dorsal wound was carefully packed with a dilute antibiotic sponge and dressed sterilely postoperative plan IV antibiotics. Check cultures. Complications: none Post-operative Condition: stable Disposition: Acute Care Plan for aftercare: IV antibiotics. Check cultures. Dressing change in 48 hours as long as he is clinically stable. Long-term follow-up likely with the wound clinic. He may require a wound VAC or other more extensive wound treatment once the infection is adequately under control.
[2019-04-22 19:18] LABS: Hematocrit 36.2 % (41-53); Hemoglobin 11.7 g/dL (13.5-17.5)
[2019-04-22] MEDS: HYDROMORPHONE 2 MG TABLET PO ×2 (19:29→22:48)
[2019-04-22] MEDS: LACTATED RINGERS 1,000 ML 125 ML IV (19:29)
--- NOTE | 2019-04-22 19:51 | PC.NURSE ---
1900 - Pt to room from PACU. Awake and alert. Drsg to right wrist CDI. Pt c/o pain 6 of 10 with a pain goal of 4. BG 128. Denies nausea. Requesting food. Discussed advancing diet as tolerated. RX given for pain. Oriented to room and routine. Reinforced safety. Call light in reach.
[2019-04-22] MEDS: levoFLOXacin 500 MG/100 ML PIGGYBACK 100 MG IV (20:55)
--- NOTE | 2019-04-22 21:18 | DI.ECHO.S_ITS ---
[facility] +---------+ : : [address] : [place] : : : : [id number] : : : : Phone: [phone]+ Echocardiogram Report + + :Name: DENTON CANTU Study Date: 04/23/2019 Height: 70 in : :[facility] Weight: 183 lb : : Gender: Male BSA: 2.0 m2 : :: 1970 Age: 48 yrs BP: 126/75 mmHg: :Reason For Study: MURMUR : : Performed By: Ivan Cruz : :Referring: DENTON QUINN : + + Interpretation Summary There is mild global hypokinesis with LV ejection fraction of 50% by Sarabia's method. Aortic sclerosis without aortic stenosis. The right ventricle is normal in size and function. Pulmonary artery pressures cannot be estimated because of the lack of a measurable TR jet velocity but the IVC suggests a CVP of around 3 mmHg. There is no prior echocardiogram noted for this patient. Procedure: A two-dimensional transthoracic echocardiogram with color flow and Doppler was performed. The study quality was technically good. There is no prior echocardiogram noted for this patient. The patient was in normal sinus rhythm during the exam. The patient had occasional PVCs during the exam. Left Ventricle: The left ventricle is normal in size. Left ventricular wall thickness is mild-moderately increased. Left ventricular ejection fraction is estimated to be 50%. There is mild global hypokinesis of the left ventricle. Diastolic function could not be accurately assessed due to contradictory data. Right Ventricle: The right ventricle is normal in size and function. Atria: Both atria are normal in size. There is no Doppler evidence for an interatrial shunt. Mitral Valve: The mitral valve leaflets appear mildly thickened, but open well. There is no mitral regurgitation noted. Aortic Valve: The aortic valve is trileaflet. The aortic valve is mildly calcified. There is minimally reduced leaflet mobility. There is no aortic valve stenosis. No aortic regurgitation is present. Tricuspid Valve: The tricuspid valve is normal in structure and function. No tricuspid regurgitation. Pulmonary artery pressures cannot be estimated because of the lack of a measurable TR jet velocity but the IVC suggests a CVP of around 3 mmHg. Pulmonic Valve: The pulmonic valve is normal in structure and function. There is no pulmonic valvular regurgitation. Great Vessels: The aortic root is normal size. The ascending aorta is normal in size. The pulmonary artery is normal size. The IVC is of normal diameter and collapses greater than 50% with a sniff. This suggests a low right atrial pressure of 3 mm Hg. Pericardium/ Pleura There is no pericardial effusion. There is no pleural effusion. MMode/2D Measurements & Calculations LVIDd: 5.4 cm LVOT diam: 2.2 cm LVIDs: 4.0 cm Ao root diam: 3.3 cm FS: 26.6 % Aortic Jxn: 2.7 cm EPSS: 0.77 cm asc Aorta Diam: 3.6 cm IVSd: 0.80 cm Ao Arch Diam (Prox Trans): 2.7 cm LVPWd: 1.0 cm LV fox. diameter/BSA (cm/m^2): 2.7 LV sys. diameter/BSA (cm/m^2): 2.0 LA dimension: 3.2 cm RA long axis: 4.7 cm LA A2 area: 21.2 cm2 RA area: 16.3 cm2 LA A4 area: 20.9 cm2 RA vol: 47.9 ml LA length (vol): 5.5 cm RA : 23.8 ml/m2 LA vol: 69.0 ml IVC diam: 1.9 cm LA vol index: 34.3 ml/m2 RVD1 (basal): 3.7 cm LVAd ap4: 40.4 cm2 RVD2 (mid): 3.5 cm LVAs ap4: 25.7 cm2 LVLs ap4: 8.0 cm LVAd ap2: 36.9 cm2 LVLd ap2: 9.2 cm LVAs ap2: 25.1 cm2 LVLs ap2: 8.1 cm Doppler Measurements & Calculations Ao V2 max: 196.3 cm/sec LVOT Max Giovanni: 109.0 cm/sec Ao V2 mean: 156.7 cm/sec LV V1 max P.8 mmHg Ao max P.4 mmHg LV V1 VTI: 18.2 cm Ao mean P.6 mmHg MARIA DOLORES(I,D): 2.0 cm2 Ao V2 VTI: 34.7 cm MARIA DOLORES(V,D): 2.1 cm2 sev ratio: 0.53 MARIA DOLORES indexed to BSA (cm^2/m^2): 1.0 MV E max giovanni: 48.9 cm/sec PA V2 max: 129.2 cm/sec MV A max giovanni: 47.3 cm/sec PA V2 mean: 97.9 cm/sec MV E/A: 1.0 PA mean P.1 mmHg Med Peak E' Giovanni: 6.7 cm/sec PA pr(Accel): 41.6 mmHg E/E' med: 7.3 PA Accel Time: 0.08 sec Lat Peak E' Giovanni: 8.2 cm/sec E/E' lat: 6.0 E/e' average: 6.6 MV dec time: 0.21 sec SV(LVOT): 70.0 ml Electronically signed by: Temo Azar M.D. on Reading Physician:04/23/2019 03:08 PM
[2019-04-22] MEDS: ACETAMINOPHEN 325 MG TABLET 975 MG PO (22:48)
[2019-04-22] MEDS: ASPIRIN EC 81 MG TABLET PO (22:49)
[2019-04-23] VITALS (12 sets, daily range): BP systolic 126–147; BP diastolic 75–93; PULSE 74–96; RESP 16–18; TEMP 36.6–37.9; O2SAT 95–100; BMI 24.2
--- NOTE | 2019-04-23 02:07 | PM.HP.1 ---
History of Present Illness History of Present Illness Date Patient Seen: 04/22/19 Time Patient Seen: 20:30 Chief complaint: nausea/vomiting/right arm pain Narrative: Mr. Jono Chao is a 48-year-old male with history significant for hypertension, alcohol and tobacco abuse who presents to the hospital for progressive illness and nausea vomiting. The patient was recently an inpatient at [facility] where he was treated for abscess and cellulitis of the right forearm. He was admitted from 04/09 to 04/17/2019. His initially diagnosed with gout and then found to have streptococcal infection. He had to surgeries by Dr. javier of the right forearm on 04/11/2000 and then again on 04/13/2019. The patient states his wounds are draining and he has become progressively symptomatic dealt today he developed nausea vomiting prompting his presentation for evaluation. The patient denies chest pain or palpitations and has no shortness of breath or cough. He denies abdominal pain but has had nausea vomiting as well as diarrhea onset today after taking 1 dose metformin. He reports no other back or joint complaints other than his right wrist. Upon arrival in the ER the patient was afebrile with temperature 97.3?, heart rate 91, blood pressure of 92/69, respirations of 20 saturating 97% on room air. CT of the right forearm was obtained which found: Prominent edema and cutaneous and subcutaneous fluid,generalized inflammation involving the hand and wrist, multiple discrete loculated rim-enhancing fluid collections are present along the ventral aspect of the hand and wrist. Multifocal abscess formation without osteomyelitis. Patient has elevated white count at 22 has recently been on prednisone therapy, hemoglobin is 11.7 and hematocrit 36.2 and platelets 711. Electrolytes are within normal limits with a BUN of 35 and creatinine 1.4. His nonfasting glucose is 250. His sed rate of 57. VBG finds a pH 7.36 with pCO2 of 37.6, bicarb 21 and a base excess of -4. Attempts were made to have the patient care for by previous surgeon who is apparently out of town. Other options for transfer were explored without success. Dr. Sanchez was contacted who evaluated the patient and took him to the OR direct from the ER. Patient History Medical History (Updated 04/23/19 @ 02:38 by SHANELLE Edmonds) Cellulitis (Inactive) Elevated blood sugar (Inactive) Hypertension (Acute) Surgical History (Updated 04/23/19 @ 02:38 by SHANELLE Edmonds) H/O esophagogastroduodenoscopy (Acute) Status post wrist surgery (Acute) Social History marital status: household members: significant other lives independently: Yes alcohol intake: current Family & Social History Social History: household members significant other Prior Living Arrangements House lives independently Yes Safety & Behavioral: Feels Safe in Current Yes Environment Been Physically Hurt or No Threatened By a Person Suicidal Ideation Description None Tobacco & Substance use: alcohol intake current alcohol intake frequency 3 or more drinks per day Substance Use Type marijuana Comment: The patient is and lives in a single family home. His father at age 58 from lymphoma in his mother had heart disease and hypertension. He has a brother that had AR at age 41 with 4 stents placed. He has 2 sons 1 of whom has diabetes. Occupation: Patient is presently not working Smoking: Current smoker, 1 pack per day. Alcohol: Patient endorses drinking a 6 pack of beer or more per day. He states his last drink though was 12 days ago and reports no symptoms of withdrawal. Substance use: Patient endorses smoking marijuana. Advanced directives: The patient has no formal advanced directives and states his desire to be FULL CODE. His is his surrogate decision maker. Meds Home Medications and Allergies Home Medications Medication Instructions Recorded Confirmed Type levofloxacin 750 mg PO DAILY 04/21/19 04/22/19 History lisinopril 40 mg PO DAILY 04/21/19 04/22/19 History metformin 500 mg PO BID #30 tab 04/21/19 04/22/19 Rx oxycodone-acetaminophen 1 tab PO Q6H PRN 04/21/19 04/22/19 History prednisone See Rx Instructions .ROUTE .COMPLEX 04/21/19 04/22/19 History Allergies Allergy/AdvReac Type Severity Reaction Status Date / Time Penicillins Allergy Rash Verified 04/21/19 10:57 Exam Vital Signs (past 8 hours): - 04/22/19 18:20 04/22/19 18:30 04/22/19 18:45 Temperature Pulse Rate 66 67 84 Respiratory Rate 12 14 14 Blood Pressure 115/66 124/66 120/73 Pulse Oximetry 97 100 99 04/22/19 18:50 04/22/19 19:00 04/22/19 19:30 Temperature 97.7 F 97.8 F Pulse Rate 72 69 77 Respiratory Rate 15 18 Blood Pressure 130/70 109/54 L 139/78 Pulse Oximetry 04/22/19 20:37 04/22/19 23:00 04/23/19 00:00 Temperature 98.5 F 98.6 F Pulse Rate 89 75 Respiratory Rate 18 16 Blood Pressure 131/74 142/77 H Pulse Oximetry 97 99 98 Oxygen Delivery Method Room Air Narrative Exam Narrative: GENERAL APPEARANCE: well developed, well nourished, in no acute distress. HEAD: Normocephalic, atraumatic, no scalp lesions. EYES: pupils equal, round, reactive to light and accommodation, sclera non-icteric, extraocular movement intact without nystagmus. EARS: normal external structures, no ear pain NOSE: sinuses non tender to percussion, no rhinorrhea ORAL CAVITY: mucosa moist without lesions or exudate, poor dentition with missing teeth, tongue in midline. THROAT: posterior pharynx without erythema or exudate, uvula midline. NECK/THYROID: neck supple, no jugular venous distention, no carotid bruit, no thyromegaly, trachea midline. LYMPH NODES: no cervical or supraclavicular lymphadenopathy. SKIN: Zimmerman, warm and dry, no rashes, good turgor, scarring over left anterior lower leg. HEART: regular rate and rhythm, S1-S2, 1/6 systolic murmur left parasternal, no rubs or gallops, brisk capillary refill, no edema LUNGS: Breath sounds with scattered wheezes without coarseness or crackles, no cough present, speaks in full sentences. CHEST: Symmetrical movement, no accessory muscle use, no pain to AP and lateral compression. ABDOMEN: Soft, no distention, no abdominal tenderness on palpation, no guarding or peritoneal signs, no organomegaly, no flank or suprapubic tenderness, active bowel tones. BACK: Normal curvature, nontender to palpation, no CVA tenderness on percussion EXTREMITIES: Bulky dressing to right forearm, wrist and hand, diminished movement right fingers unable to make fist, slight numbness fingertips with good capillary refill, moves all other extremities, strength 5/5 NEUROLOGIC: AAO x4, no focal neurologic deficits, cranial nerves II-XII grossly intact. PSYCH: alert, cognitive function intact, good eye contact, appropriate with stable behavior Objective Labs Result Diagrams: 04/22/19 19:07 04/22/19 09:26 Labs: Laboratory Results - last 24 hr 04/22/19 04/22/19 04/22/19 09:22 09:26 09:26 WBC 22.0 H RBC 4.64 Hgb 13.0 L Hct 39.1 L MCV 84.3 MCH 28.0 MCHC 33.2 RDW 15.7 H Plt Count 711 H Neut % (Auto) 71.6 Lymph % (Auto) 19.5 L [place] % (Auto) 7.9 Eos % (Auto) 0.5 L Baso % (Auto) 0.5 Neut # (Auto) 03271 H Lymph # (Auto) 4300 [place] # (Auto) 1700 H Eos # (Auto) 100 Baso # (Auto) 100 Platelet Estimate Increased on smear RBC Morphology See Poikilocytosis 1+ H ESR VBG pH 7.36 VBG pCO2 37.6 L VBG pO2 52 H VBG HCO3 21 L VBG Total CO2 23 L VBG O2 Saturation 85 H VBG Base Excess -4.0 L Sodium Potassium Chloride Carbon Dioxide BUN Creatinine Estimated GFR BUN/Creatinine Ratio Glucose Lactate Calcium Phosphorus Magnesium Total Bilirubin AST ALT Alkaline Phosphatase C-Reactive Protein Total Protein Albumin Globulin Albumin/Globulin Ratio Lipase Procalcitonin 0.15 Ketones 04/22/19 04/22/19 04/22/19 09:26 09:26 09:26 WBC RBC Hgb Hct MCV MCH MCHC RDW Plt Count Neut % (Auto) Lymph % (Auto) [place] % (Auto) Eos % (Auto) Baso % (Auto) Neut # (Auto) Lymph # (Auto) [place] # (Auto) Eos # (Auto) Baso # (Auto) Platelet Estimate RBC Morphology Poikilocytosis ESR VBG pH VBG pCO2 VBG pO2 VBG HCO3 VBG Total CO2 VBG O2 Saturation VBG Base Excess Sodium 133 L Potassium 4.5 Chloride 99 Carbon Dioxide 22 BUN 35 H Creatinine 1.40 H Estimated GFR 53.6 L BUN/Creatinine Ratio 25.0 H Glucose 250 H D Lactate 2.7 H Calcium 10.1 Phosphorus 5.3 H Magnesium 1.7 Total Bilirubin 0.7 AST 37 ALT 31 Alkaline Phosphatase 207 H C-Reactive Protein Total Protein 7.9 Albumin 3.9 Globulin 4.0 Albumin/Globulin Ratio 1.0 Lipase 88 Procalcitonin Ketones 0.13 04/22/19 04/22/19 04/22/19 10:22 10:22 11:43 WBC RBC Hgb Hct MCV MCH MCHC RDW Plt Count Neut % (Auto) Lymph % (Auto) [place] % (Auto) Eos % (Auto) Baso % (Auto) Neut # (Auto) Lymph # (Auto) [place] # (Auto) Eos # (Auto) Baso # (Auto) Platelet Estimate RBC Morphology Poikilocytosis ESR 57 H VBG pH VBG pCO2 VBG pO2 VBG HCO3 VBG Total CO2 VBG O2 Saturation VBG Base Excess Sodium Potassium Chloride Carbon Dioxide BUN Creatinine Estimated GFR BUN/Creatinine Ratio Glucose Lactate 1.7 Calcium Phosphorus Magnesium Total Bilirubin AST ALT Alkaline Phosphatase C-Reactive Protein 1.3 H Total Protein Albumin Globulin Albumin/Globulin Ratio Lipase Procalcitonin Ketones 04/22/19 19:07 WBC RBC Hgb 11.7 L Hct 36.2 L MCV MCH MCHC RDW Plt Count Neut % (Auto) Lymph % (Auto) [place] % (Auto) Eos % (Auto) Baso % (Auto) Neut # (Auto) Lymph # (Auto) [place] # (Auto) Eos # (Auto) Baso # (Auto) Platelet Estimate RBC Morphology Poikilocytosis ESR VBG pH VBG pCO2 VBG pO2 VBG HCO3 VBG Total CO2 VBG O2 Saturation VBG Base Excess Sodium Potassium Chloride Carbon Dioxide BUN Creatinine Estimated GFR BUN/Creatinine Ratio Glucose Lactate Calcium Phosphorus Magnesium Total Bilirubin AST ALT Alkaline Phosphatase C-Reactive Protein Total Protein Albumin Globulin Albumin/Globulin Ratio Lipase Procalcitonin Ketones Assessment & Plan Assessment & Plan narrative: This is a 48-year-old male patient who is admitted to the hospital for incomplete treatment of infection of his right forearm. Patient has taken directly from the ER to the OR by Dr. Sanchez for incision and drainage with washout. 1. Septic right wrist, right arm cellulitis, acute, present on admission, active -the patient reports 2 previous I&D surgeries performed on 04 11 and then again on 04/13 at [facility] and discharged on 04/17/2019. -patient returns today with onset feeling progressively ill and developing nausea vomiting. On arrival white blood cell count is 22 with a sed rate of 57, CRP of 1.3 and lactate of 1.7. -patient is taken to the OR by Dr. Sanchez for definitive treatment of identified loculated abscesses on CT. -the patient is on vancomycin per Dr. Sanchez, requested pharmacy to dose due to renal impairment with creatinine 1.4. -add levofloxacin 500 mg daily. -ongoing surgical and postoperative care by Dr. Maida Sanchez. -will follow CBC and infection markers. 2. Beta hemolytic strep infection, acute, present on admission, active -per Dr. Sanchez note: previous culture grew beta-hemolytic strep group G sensitivities were not previously run. -patient with systemic symptoms including nausea vomiting may possibly be related to adverse reaction to metformin. -patient presents with a heart murmur left midsternal border which is not been previously diagnosed. -patient is on antibiotics as above. -will obtain echocardiogram. 3. Hyperglycemia, unknown if chronic or acute, present on admission, active. -blood sugar on admission is 250, not in DKA. -patient did receive steroids related to medication reaction to penicillin. -will obtain a hemoglobin A1c. -Accu-Cheks AC and HS with correctional insulin low scale. 4. Elevated BUN and creatinine, probable acute kidney injury, present on admission, active -BUN is 35 with creatinine 1.4 on admission, no labs are available for comparison. Likely related to streptococcal infection. -received 1 L normal saline in the emergency department, continue hydration with lactated Ringer's at 100 cc/hour. -stu follow renal function on chemistries. 5. Essential hypertension, chronic, present on admission, active -continue patient's home medication of lisinopril 40 mg daily. 6. Current every day smoker, present on admission, active -patient was scattered wheezes, reports chronic morning cough. No complaints of shortness of breath, speaking in full sentences. -respiratory to evaluate treat -albuterol nebulizer treatments every 4 hours as needed. -discussion on smoking cessation. 7. Alcohol abuse, chronic, active. -patient reports consuming a 6 pack of beer or more per day, his last drink was 12 days ago. No visible tremulousness agitation or hallucinations. -CIWA assessment per protocol The patient is admitted to the hospital directly to surgery related to severity of symptoms and risk for complications and adverse events. The patient is admitted as an inpatient with expected length of stay to be greater than 2 midnights. Quality VTE Deep Vein Thrombosis/Pulmonary Embolism Present on Admission: No
[2019-04-23] MEDS: HYDROMORPHONE 2 MG TABLET PO ×5 (02:38→21:00)
[2019-04-23] MEDS: VANCOMYCIN 1,500 MG/300 ML FROZ.PIGGY 200 MG IV ×2 (03:40→16:00)
[2019-04-23 05:59] LABS: Add Manual Diff / Slide Review NO; Basophils Absolute Auto 100 /uL (0-100); Basophils Percent Auto 1.1 % (0-2); Eosinophils Absolute Auto 100 /uL (0-450); Eosinophils Percent Auto 0.9 % (2-4); Hematocrit 33.1 % (41-53); Lymphocytes Absolute Auto 3400 /uL (1100-4500); Lymphocytes Percent Auto 30.6 % (25-40); Mean Corpuscular HGB Conc 33.2 % (30-36); Mean Corpuscular Hemoglobin 28.2 PG (26-34); Mean Corpuscular Volume 85.1 fL (80-100); Monocytes Absolute Auto 1000 /uL (0-900); Monocytes Percent Auto 9.3 % (3-14); Neutrophils Absolute Auto 6400 /uL (1500-7000); Neutrophils Percent Auto 58.1 % (50-75); Platelet Count 507 X10^3/uL (150-400); Red Blood Cell Count 3.88 X10^6/uL (4.5-5.9); Red Cell Distribution Width 16.3 % (11.6-14.8)
[2019-04-23 06:03] LABS: BUN Creatinine Ratio 43.3 (6-22); Blood Urea Nitrogen 26 mg/dL (9-20); Calcium 8.9 mg/dL (8.4-10.2); Carbon Dioxide 26 mmol/L (22-32); Chloride 101 mmol/L (98-107); Estimated Glomerular Filt Rate > 60.0 mL/min (>60); Glucose 163 mg/dL (70-100); HEMOLYSIS < 15 (0-50); Potassium 4.6 mmol/L (3.4-5.1); Sodium 134 mmol/L (137-145)
[2019-04-23 06:54] LABS: Procalcitonin < 0.05 ng/mL (<0.5)
[2019-04-23] MEDS: ACETAMINOPHEN 325 MG TABLET 975 MG PO ×3 (08:23→21:09)
[2019-04-23] MEDS: ASPIRIN EC 81 MG TABLET PO ×2 (08:23→21:10)
[2019-04-23] MEDS: HEPARIN 5,000 UNIT/ML VIAL 5000 UNIT SUBCUT ×2 (08:24→21:10)
[2019-04-23] MEDS: LISINOPRIL 20 MG TABLET 40 MG PO (08:24)
[2019-04-23] MEDS: POLYETHYLENE GLYCOL 3350 17 GM POWD.PACK PO (08:27)
[2019-04-23] MEDS: INSULIN ASPART 100 UNIT/ML INSULN PEN SUBCUT ×3 (08:31→17:03)
--- NOTE | 2019-04-23 11:17 | CM.DANOTE ---
DCP: Case received, EMR reviewed and met with patient. Introduced self and role. Was able to meet with patient in his room to obtain baseline health and activity information. DCP template/assessment completed with information currently available. Patient is a 48 year old male who admitted yesterday afternoon to the care of the hospitalist team. PCP: Dr. Fitzpatrick, [facility]. Payer: confirmed: [employer] Patient came to the hospital secondary to pain and nausea, secondary to a right wrist wound. Patient had recently been at [facility] regarding this wound, and was discharged on 04/17. He was supposed to follow up with orthopedist. He developed increased pain and redness to his wrist. He holds diagnosis of cellulitis, and had surgery here at the hospital for debridement yesterday. Patient has history of diabetes, and drinks a 6 pack of beer daily, as well as marijuana. He resides in [place] with his significant, Linda. Met patient in his room, had his wrist wrapped and elevated. His cousin was at bedside as well. Patient has been independent at home, prior to having this wrist injury. He also has a supportive mother as well. P: DCP to follow closely as plan unfolds. At this time, is unclear if he will need potential wound vac as well as IV antibiotics. He would potentially be set up at wound clinic in [place], if needed, depending on which type of antibiotic he will need. He may also benefit with home health nurse as well for in home wound care. Valery Restrepo RN/Box Machine Operator
--- NOTE | 2019-04-23 11:27 | PC.NURSE ---
Addendum entered by Kaylin Pineda R.N. 04/23/19 12:11: I did receive notification of this incident. Original Note: Pt has reported that he left his dentures on his breakfast tray this morning and is unable to find them since. His room, garbage and dietary garbage have been searched by hospital staff without finding them. Kaylin Pineda has been notified. Pt has been provided Kaylin Pineda's contact information if he would like to file a reimbursement claim.
--- NOTE | 2019-04-23 11:59 | PT.IIE ---
Current Diagnoses Encounter for other specified aftercare (04/22/19) Surgery Performed Operation Date: 04/22/19 16:45 Actual Procedures p Incision and Drainage Wound/Extremity(Right) - Maida Sanchez MD Surgical History (Last Updated 04/23/19 @ 02:38 by SHANELLE Edmonds) H/O esophagogastroduodenoscopy (Acute) Status post wrist surgery (Acute) Medical History (Last Updated 04/23/19 @ 02:38 by SHANELLE Edmonds) Cellulitis (Inactive) Elevated blood sugar (Inactive) Hypertension (Acute) Physical Therapy Inpatient Evaluation/Re-Eval M1 PT/OT-IP Prior Functional Status Start: 04/23/19 08:10 Freq: NEEDED Status: Active Protocol: Document 04/23/19 10:00 HH (Rec: 04/23/19 11:59 [id number]) Medical Review Prior Functional Status Medical History Reviewed Yes Communication no deficits noted. Able to make needs known Mobility and Gait independent with home and community mobility Activities of Daily Living and IADL's independent with ADLs and IADLs Social History Household Members significant other,family Living Arrangements House Number of Floors (Floors) One Floor Number of Stairs To Enter/Railing? 2 ALEXYS without rails Home Environment Standard Height Toilet,Walk in Shower,Tub/Shower Home Equipment Front Wheel Walker,Straight Cane,Shower Seat with Backrest ,Grab Bars In Shower Employment Status Unemployed Additional Social History Comment Pt lives in [place] with his girlfriend and he also stays with his mother occsasionally who lives closeby as well. He stated his girlfriend Linda will be able to assist at home. Pt has been receiving wound care and I&D x 2 at [facility]. Current D/C plan would be attending outpatient wound care clinic. per Dr. Sanchez note: previous culture grew beta-hemolytic strep group G sensitivities were not previously run. M2 PT-IP Current Condition Start: 04/23/19 08:10 Freq: NEEDED Status: Active Protocol: Document 04/23/19 10:00 HH (Rec: 04/23/19 11:59 [id number]) Physical Therapy Current Condition Current Condition Evaluation Date 04/23/19 Treatment Diagnosis Infected R hand & wrist, I & D Onset Date 04/22/19 M3 PT-IP Subjective Start: 04/23/19 08:10 Freq: NEEDED Status: Active Protocol: Document 04/23/19 10:00 (Rec: 04/23/19 11:59 [id number]) Subjective Physical Therapy Visit Type Type Initial Evaluation Visit Start Time 10:00 Visit Stop Time 10:23 Total Visit Minutes 23 Notes Per RN, pt has been getting OOB with nursing/ girlfriend's assistance. Number of MIX TECHNICIAN Visits 0 Physical Therapy Visit Comments Patient Comments Im doing better now, doesnt feel weak at all Patient Goals To return home with girlfriend . Therapy Pain Assessment Pain When Pain Assessed At Rest Pain Present Pain Present Pain Reported Location right hand Intensity 5 Scale Used Numeric (1 - 10) Description Acute Pain Management Techniques Timing of Activity with Medications M4 PT-IP Mobility and Gait Start: 04/23/19 08:10 Freq: NEEDED Status: Active Protocol: Document 04/23/19 10:00 (Rec: 04/23/19 11:59 [id number]) PT-Bed Mobility Assessment Supine to Sit Supine to Sit Independent Scooting Scooting to Edge of Bed Independent PT-Transfer Assessment Sit to and From Stand Sit to and from Stand Independent Equipment Transfer Assistive Device None Orthotic/Prosthetic Devices or Brace: No Transfers Transfer Destination Bed,Chair Transfer Technique Stand Step Pivot Transfer Ability Level of Assist Independent Comments Mobility Comments Pt was in bed upon assessment. C/o pain at rest. Pt reports he has been moving his fingers as mehnaz. He completed supine to long sit and sat EOB independently. He then stood up and amb in the hallway and able to returned to bedside chair without AD. Pt appears very steady and back at baseline for overall mobility. Gait Assessment Gait Gait Assistance Required: Independent Distance (Feet) 212 Able to Maintain Weight Bearing Status Yes During Gait Assistive Devices Assistive Device None Orthotic/Prosthetic Devices or Brace: No Gait Deviations General Gait Pattern Within Normal Limits Comments Gait Comments see mobility comments Stair Climbing Assessment Evaluation Level of Assist On Stairs Independent Devices Stair Climbing Assistive Devices None Technique/Endurance Stair Climbing Direction Ascend and Descend Stair Climbing Technique Step Over Step Number of Steps Climbed 3 Query Text: Stair Climbing Set # Repetitions (reps) 2 PT-Balance Assessment Sitting Balance and Reactions Static Sitting Balance Ability Normal Dynamic Sitting Balance Ability Normal Standing Balance and Reactions Static Standing Balance Ability Normal Dynamic Standing Balance Ability Normal Device Used none M5 PT-IP Objective Assessments Start: 04/23/19 08:10 Freq: NEEDED Status: Active Protocol: Document 04/23/19 10:00 (Rec: 04/23/19 11:59 [id number]) Orientation Orientation/Cognition Level of Alertness Alert Orientation Name,Age,Birthday,Month,Date, Year,Day of Week,Place, Situation Language Function Ability No Deficits Noted Safety Awareness Understands Safety Issues Memory Description No Deficits Noted Gross Range of Motion Upper Extremity ROM Assessment Right Impaired Lower Extremity ROM Assessment Within Functional Limits Strength Upper Extremity Strength Assessment Right Impaired Wrist 2/5 Hand 1/5 Lower Extremity Strength Assessment Within Functional Limits Coordination Assessment Gross Coordination Gross Coordination WNL Sensation Assessment Sensation Gross Sensation WNL Muscle Tone Muscle Tone WNL Yes M6 PT-IP Treatment Start: 04/23/19 08:10 Freq: NEEDED Status: Active Protocol: Document 04/23/19 10:00 (Rec: 04/23/19 11:59 [id number]) Physical Therapy Treatment Education Education Provided Precautions,Safety Other Treatments Other Treatment Performed exercise for passive finger flexor stretch as tolerated on R hand exercise for finger opposition with thumb M7 PT-IP Assessment and Plan Start: 04/23/19 08:10 Freq: NEEDED Status: Active Protocol: Document 04/23/19 10:00 (Rec: 04/23/19 11:59 [id number]) PT Summary Assessment and Plan Potential Rehabilitation Potential Excellent Status of Condition at Evaluation Stable Summary Progress Towards Goals Safe For Discharge Assessment Summary Pt is an evaluation only who is s/p I &D for his infected R hand and wrist due to Beta hemolytic strep infection. Pt overall did very well for mobility independently without AD. Instructed pt to do exercises with passive finger flexor stretch as tolerated on R hand and finger opposition with R thumb to prevent contracture. Pt overall demonstrates very limited fingers ROM and strength. Recommended to see hand specialist OT/PT after d/c. Pt currently does not have the need of skilled physical therapy but he will stay 2 more nights for antibiotic tx. He will also attend outpatient wound clinic for cont care. Frequency of Treatment Frequency Of Treatment Discharge Recommendations To Nursing Amount of Assist Needed Independent Discharge Recommendations PT Discharge Recommendations Home,Outpatient PT Other Discharge Recommendations Recommended to see hand specialist OT/PT after d/c
[2019-04-23] MEDS: OXYCODONE IR 10 MG TABLET PO ×2 (12:23→18:59)
[2019-04-23] MEDS: LACTATED RINGERS 1,000 ML 125 ML IV (12:50)
--- NOTE | 2019-04-23 13:26 | DIET.PN ---
Dietary Progress Note Assessment: 48y M admitted for unhealing R arm wound/cellulitis s/p 2 procedures referred to nutrition for hyperglycemia Pt has hx of drinking 6+ beers/d but denies any etoh consumption for past 12d. Pt had home foods of vanilla low-fat yogurt, granola, fresh fruit, and mixed nuts in room. Pt reports knowing nothing of foods to support his healing or how to count carbs and would like an education sheet to help him. This RD used hospital menu to help pt navigate creating 45g limit meals and encourage him to study it for future food choices when d/c'd. Waiting on A1c to understand if hyperglycemia d/t steroids and infection or if DM2. HT: 177.8cm WT: 76.5kg BMI: 24.2 Labs: Na 134 L, BUN 26 H, K+ 5.3 H, Alk Phos 207 H, CRP 1.3 H, BG 163-250 H, A1c pending Raul:20 Nutrition Diagnosis: Food and nutrition related knowledge deficit r/t increased nutrient needs for wound healing (consistent carb, increase in Vit A, Vit C, zinc and PRO, etoh avoidance) aeb abnormal lab values (BG 163-250), delayed wound healing, pt asking what to eat to help wounds heal. Interventions: Recc ONS Michael bid Educate pt on CCD, optimizing nutrition for wound healing c focus on keeping BG <200 by sticking to 45g carbs/meal and alcohol avoidance. Diet Order: CCD EER: 2500kcal, 90g PRO (1.2g/kg wounds), 2.6L fluids Monitoring/Evaluations: monitor pending A1c, f/u carbohydrate ed
[2019-04-23 13:51] LABS: C-Reactive Protein Quant 2.6 mg/dL (<1.0)
--- NOTE | 2019-04-23 16:39 | PM.PN.1 ---
Subjective Subjective Date Patient Seen: 04/23/19 Interval history: Patient is a 48-year-old male who was admitted to the hospital for soft tissue infection involving his right hand. The patient has known group B beta strep. He underwent I&D of the wound last night and is now on antibiotics. The patient does complain of pain. He denies any diarrhea Exam Vital Signs (past 8 hours): - 04/23/19 11:30 04/23/19 12:00 04/23/19 15:38 Temperature 99.1 F 99.1 F Pulse Rate 74 78 Respiratory Rate 16 18 Blood Pressure 126/75 143/82 H Pulse Oximetry 98 99 100 Oxygen Delivery Method Room Air Narrative Exam Narrative: Pleasant gentleman in no acute distress Lungs clear to auscultation Cardiac exam regular rate and rhythm Abdomen soft nontender Right hand with dressing in place Objective Labs Result Diagrams: 04/23/19 05:30 04/23/19 05:30 Labs: Laboratory Results - last 24 hr 04/22/19 04/23/19 04/23/19 19:07 05:30 05:30 WBC 11.0 RBC 3.88 L Hgb 11.7 L 11.0 L Hct 36.2 L 33.1 L MCV 85.1 MCH 28.2 MCHC 33.2 RDW 16.3 H Plt Count 507 H Neut % (Auto) 58.1 Lymph % (Auto) 30.6 Sac % (Auto) 9.3 Eos % (Auto) 0.9 L Baso % (Auto) 1.1 Neut # (Auto) 6400 Lymph # (Auto) 3400 [place] # (Auto) 1000 H Eos # (Auto) 100 Baso # (Auto) 100 Sodium Potassium Chloride Carbon Dioxide BUN Creatinine Estimated GFR BUN/Creatinine Ratio Glucose Calcium C-Reactive Protein Procalcitonin < 0.05 04/23/19 05:30 WBC RBC Hgb Hct MCV MCH MCHC RDW Plt Count Neut % (Auto) Lymph % (Auto) [place] % (Auto) Eos % (Auto) Baso % (Auto) Neut # (Auto) Lymph # (Auto) [place] # (Auto) Eos # (Auto) Baso # (Auto) Sodium 134 L Potassium 4.6 Chloride 101 Carbon Dioxide 26 BUN 26 H Creatinine 0.60 L Estimated GFR > 60.0 BUN/Creatinine Ratio 43.3 H Glucose 163 H Calcium 8.9 C-Reactive Protein 2.6 H Procalcitonin Assessment & Plan Assessment & Plan narrative: 1. Skin and soft tissue infection involving the right wrist, status post I&D, infection due to group <del>G</del> <del>beta-hemolytic</del> <del>strep.</del> Patient is on vancomycin and levofloxacin. Will await culture and sensitivities. Dressing changes per surgery. Will await feedback from Dr. Sanchez regarding whether repeat surgical exploration and washout will be needed. 2. Hyperglycemia, new diagnosis of type 2 diabetes. Patient was hyperglycemic lost likely related to prednisone. Will continue sliding scale insulin here and determine whether metformin will be resumed at discharge. Hypertension, present on admission, continue lisinopril 3. Acute renal failure, improved, continue antibiotics 4. Nicotine dependence, chronic patient encouraged to discontinue smoking Quality VTE Deep Vein Thrombosis/Pulmonary Embolism Present on Admission: No
[2019-04-23 18:26] LABS: Procalcitonin < 0.05 ng/mL (<0.5)
[2019-04-23] MEDS: levoFLOXacin 500 MG/100 ML PIGGYBACK 100 MG IV (21:09)
[2019-04-24] VITALS (16 sets, daily range): BP systolic 104–155; BP diastolic 64–94; PULSE 77–98; RESP 16–20; TEMP 36.4–37.2; O2SAT 95–99
--- NOTE | 2019-04-24 | DI.RAD.S_ITS ---
PROCEDURE: XR WRIST RT MIN 3V INDICATIONS: septic joint TECHNIQUE: 3 views of the wrist were acquired. COMPARISON: None. FINDINGS: Bones: No fractures or dislocations. No suspicious bony lesions. Presumed chronic post matter deformity of the fifth metacarpal. First CMC and triscaphe joint degeneration Soft tissues: No suspicious soft tissue calcifications. IMPRESSION: No focal osseous destruction to suggest advanced osteomyelitis. If there is persistent clinical concern, continued short interval radiographic followup or contrast enhanced MRI could be performed to assess for early infection. Dictated by: Varghese Walker M.D. on 04/24/2019 at 17:04 Approved by: Varghese Walker M.D. on 04/24/2019 at 17:05
[2019-04-24] MEDS: HYDROMORPHONE 2 MG TABLET PO ×4 (00:03→18:13)
[2019-04-24] MEDS: OXYCODONE IR 10 MG TABLET PO ×4 (03:15→22:14)
[2019-04-24 03:47] LABS: Blood Urea Nitrogen 22 mg/dL (9-20); Calcium 9.1 mg/dL (8.4-10.2); Carbon Dioxide 24 mmol/L (22-32); Chloride 102 mmol/L (98-107); Estimated Glomerular Filt Rate > 60.0 mL/min (>60); Glucose 162 mg/dL (70-100); HEMOLYSIS < 15 (0-50); Potassium 4.4 mmol/L (3.4-5.1); Sodium 133 mmol/L (137-145)
[2019-04-24 03:48] LABS: Add Manual Diff / Slide Review NO; Basophils Absolute Auto 100 /uL (0-100); Basophils Percent Auto 0.5 % (0-2); Eosinophils Absolute Auto 100 /uL (0-450); Eosinophils Percent Auto 0.8 % (2-4); Hematocrit 34.8 % (41-53); Hemoglobin 11.6 g/dL (13.5-17.5); Lymphocytes Absolute Auto 3300 /uL (1100-4500); Lymphocytes Percent Auto 29.9 % (25-40); Mean Corpuscular HGB Conc 33.4 % (30-36); Mean Corpuscular Hemoglobin 28.6 PG (26-34); Mean Corpuscular Volume 85.6 fL (80-100); Monocytes Absolute Auto 1300 /uL (0-900); Monocytes Percent Auto 11.9 % (3-14); Neutrophils Absolute Auto 6200 /uL (1500-7000); Neutrophils Percent Auto 56.9 % (50-75); Platelet Count 500 X10^3/uL (150-400); Red Blood Cell Count 4.07 X10^6/uL (4.5-5.9); White Blood Cell Count 10.9 X10^3/uL (4.5-11.0)
[2019-04-24] MEDS: VANCOMYCIN 1,500 MG/300 ML FROZ.PIGGY 200 MG IV ×3 (05:01→22:14)
[2019-04-24] MEDS: VANCOMYCIN TROUGH 1 REQUEST MISC (05:05)
[2019-04-24] MEDS: ACETAMINOPHEN 325 MG TABLET 975 MG PO ×3 (08:59→20:33)
[2019-04-24] MEDS: ASPIRIN EC 81 MG TABLET PO ×2 (09:00→20:34)
[2019-04-24] MEDS: LISINOPRIL 20 MG TABLET 40 MG PO (09:01)
[2019-04-24] MEDS: POLYETHYLENE GLYCOL 3350 17 GM POWD.PACK PO (09:02)
[2019-04-24] MEDS: INSULIN ASPART 100 UNIT/ML INSULN PEN SUBCUT ×2 (09:04→12:24)
[2019-04-24] MEDS: HEPARIN 5,000 UNIT/ML VIAL 5000 UNIT SUBCUT ×2 (09:05→20:34)
--- NOTE | 2019-04-24 10:43 | P.PN_ITS ---
Subjective Subjective Date Patient Seen: 04/24/19 Time Patient Seen: 10:43 Interval history: POD #2 s/p right hand and wrist irrigation and debridement with excisional debridement of hematoma and soft tissue within irrigation and debridement of the right wrist with a dorsal arthrotomy with Dr. Sanchez. He has a complex past medical history. He has previously been seen extensively at [facility]. He was admitted 04/09/19-04/17/19 after having problems with his right arm which was initially diagnosed with gout and subsequently with a streptococcal infection with deep infection. He underwent previous irrigation and debridement x2 by Dr. Dinero both dorsal and on the carpal canal. His previous culture grew beta-hemolytic strep group G sensitivities were not previously run. He was placed on antibiotics including penicillin which he developed a severe rash with the penicillin and then he was placed on steroids. His blood sugar was 500 when he was seen at ED. WBC count 22. He was not previously a diabetic. Today he states he is feeling much better overall. BS 168, WBC 10.9, and afebrile. Final wound cultures demonstrate no growth. Exam Vital Signs (past 8 hours): - 04/24/19 03:00 04/24/19 05:14 04/24/19 08:00 Temperature 98.5 F 97.8 F Pulse Rate 77 81 Respiratory Rate 16 16 Blood Pressure 151/83 H 133/81 Pulse Oximetry 97 97 99 04/24/19 09:01 04/24/19 10:01 Temperature Pulse Rate 81 95 H Respiratory Rate 16 Blood Pressure 133/81 Pulse Oximetry 99 Oxygen Delivery Method Room Air Narrative Exam Narrative: Patient up in bed in no acute distress. He is alert and oriented x3. Calves are soft, compressible, nontender bilaterally. Dressing removed this morning. Radial pulses are symmetrical. Volar incision intact with no dehiscence or erythema. Dorsal wound has good granulation tissue, and minimal erythema around edges. No signs of purulence. Objective Labs Result Diagrams: 04/24/19 03:30 04/24/19 03:30 Labs: Laboratory Results - last 24 hr 04/23/19 04/23/19 04/24/19 05:30 17:26 03:30 WBC RBC Hgb Hct MCV MCH MCHC RDW Plt Count Neut % (Auto) Lymph % (Auto) [place] % (Auto) Eos % (Auto) Baso % (Auto) Neut # (Auto) Lymph # (Auto) [place] # (Auto) Eos # (Auto) Baso # (Auto) Sodium Potassium Chloride Carbon Dioxide BUN Creatinine Estimated GFR BUN/Creatinine Ratio Glucose Calcium C-Reactive Protein 2.6 H Procalcitonin < 0.05 Vancomycin Trough 7.0 L 04/24/19 04/24/19 03:30 03:30 WBC 10.9 RBC 4.07 L Hgb 11.6 L Hct 34.8 L MCV 85.6 MCH 28.6 MCHC 33.4 RDW 16.0 H Plt Count 500 H Neut % (Auto) 56.9 Lymph % (Auto) 29.9 [place] % (Auto) 11.9 Eos % (Auto) 0.8 L Baso % (Auto) 0.5 Neut # (Auto) 6200 Lymph # (Auto) 3300 [place] # (Auto) 1300 H Eos # (Auto) 100 Baso # (Auto) 100 Sodium 133 L Potassium 4.4 Chloride 102 Carbon Dioxide 24 BUN 22 H Creatinine 0.50 L Estimated GFR > 60.0 BUN/Creatinine Ratio 44.0 H Glucose 162 H Calcium 9.1 C-Reactive Protein Procalcitonin Vancomycin Trough Assessment & Plan Post-op Postoperative Procedures: Procedures Operation Date: 04/22/19 16:45 Actual Procedures Side Surgeon p Incision and Drainage Wound/Extremity Right Maida Faizan Sanchez MD Dressing changed this morning. Will need BID dressing changes; wet to dry. Dr. Sanchez recommending wound care follow patient and would greatly appreciate bee ent being followed by them. Will get x-rays today. Plan for IV antibiotics x6 weeks. Patient is progressing well after surgery. Quality VTE Deep Vein Thrombosis/Pulmonary Embolism Present on Admission: No
--- NOTE | 2019-04-24 12:33 | CM.DPC ---
Addendum entered by Valery Restrepo R.N. 04/24/19 14:29: Spoke to Eloisa at [facility], she stated they usually have some challenges with this insurance, since they do not like to do single case plans, but she will call them and look into it. Have not yet heard from [facility]. Aj from [facility] came by, and stated that they do work with his insurance. At this time, uncertain if patient can manage this at home, which is why skilled is first priority. Original Note: DCP Cont: Noted a note from [facility], that patient may need approximately 6 weeks of IV antibiotics. Spoke to Dr. Savage, hospitalist, who stated that this may be happening, but they are awaiting another culture. Is in agreement that patient may need assisted. Discussed with patient in his room. At this time, dressing changes are twice a day. He is willing to go to a facility on a temporary basis, and is ok with [facility] or [facility]. Left message with Eloisa and gave her information so she can check insurance. Left a message with Rekha in admissions at [facility], and will go ahead and fax referral. Patient is wondering how long he will be here. Let him know, will depend upon cultures, acceptance to facility as well, and knowing which antibiotics he will be on. P: DCP to follow closely. Will send information over to [facility]. Verbal message left with Eloisa at [facility]. Valery Restrepo RN/Building Superintendent
[2019-04-24 16:10] LABS: Hemoglobin A1C% w Est Avg Glu 7.6 % (4.0-6.0)
--- NOTE | 2019-04-24 17:25 | PM.PN.1 ---
Subjective Subjective Date Patient Seen: 04/24/19 Interval history: Patient is a 48-year-old male who was admitted to the hospital for an infection involving the right arm. The patient underwent I and D with washout of the right arm yesterday. He had purulence super super to of infection. Patient was seen at [facility] for I&D of the same. Cultures there grew out group G Streptococcus. The patient was treated initially with penicillin. He developed a rash to the penicillin which was discontinued. Was also placed on prednisone in developed hyperglycemia secondary to the steroids. He continues to have some right wrist pain. Plans are underway for the patient to undergo 6 weeks of IV antibiotics. Exam Vital Signs (past 8 hours): - 04/24/19 10:01 04/24/19 12:00 04/24/19 13:00 Temperature 97.9 F Pulse Rate 95 H 98 H Respiratory Rate 16 16 Blood Pressure 104/69 Pulse Oximetry 99 98 95 04/24/19 16:02 04/24/19 16:07 Temperature 97.6 F Pulse Rate 86 Respiratory Rate 20 Blood Pressure 121/76 Pulse Oximetry 99 Oxygen Delivery Method Room Air Narrative Exam Narrative: Pleasant male in no acute distress Lungs: Clear to auscultation Cardiac exam: Regular rate and rhythm normal S1-S2 with a 2/6 systolic ejection murmur Abdomen: Soft nontender nondistended Extremities: Right arm with dressing in place Objective Labs Result Diagrams: 04/24/19 03:30 04/24/19 03:30 Labs: Laboratory Results - last 24 hr 04/23/19 04/23/19 04/24/19 17:26 17:26 03:30 WBC RBC Hgb Hct MCV MCH MCHC RDW Plt Count Neut % (Auto) Lymph % (Auto) [place] % (Auto) Eos % (Auto) Baso % (Auto) Neut # (Auto) Lymph # (Auto) [place] # (Auto) Eos # (Auto) Baso # (Auto) Sodium Potassium Chloride Carbon Dioxide BUN Creatinine Estimated GFR BUN/Creatinine Ratio Glucose Hemoglobin A1c 7.6 H Calcium Procalcitonin < 0.05 Vancomycin Trough 7.0 L 04/24/19 04/24/19 03:30 03:30 WBC 10.9 RBC 4.07 L Hgb 11.6 L Hct 34.8 L MCV 85.6 MCH 28.6 MCHC 33.4 RDW 16.0 H Plt Count 500 H Neut % (Auto) 56.9 Lymph % (Auto) 29.9 [place] % (Auto) 11.9 Eos % (Auto) 0.8 L Baso % (Auto) 0.5 Neut # (Auto) 6200 Lymph # (Auto) 3300 [place] # (Auto) 1300 H Eos # (Auto) 100 Baso # (Auto) 100 Sodium 133 L Potassium 4.4 Chloride 102 Carbon Dioxide 24 BUN 22 H Creatinine 0.50 L Estimated GFR > 60.0 BUN/Creatinine Ratio 44.0 H Glucose 162 H Hemoglobin A1c Calcium 9.1 Procalcitonin Vancomycin Trough Assessment & Plan Assessment & Plan narrative: Impression 1. 48-year-old male admitted to the hospital for probable septic arthritis of the right wrist. Patient is status post I&D with washout. Cultures previously grew group G Streptococcus. The patient had an allergic reaction to penicillin. He currently is on IV vancomycin and levofloxacin. Cultures thus far are not growing organisms. Discussed with tyler lennie and we are waiting preliminary results. The patient will need IV antibiotics for 6 weeks. Will consult with Infectious Disease to determine which antibiotics for the 6 week course. I was unable to reach them at this time but will call 1st thing in the morning. 2. Type 2 diabetes, new onset, patient previously started on metformin and developed significant diarrhea with this. The metformin has since been held. Patient is on a basal bolus insulin at this time. Would consider low-dose metformin as an outpatient 3. Hypertension, chronic continue lisinopril 4. Hyponatremia, will continue to follow Plan PICC line placement, 6 weeks of IV antibiotics probable sniff placement for long-term IV antibiotics. Quality VTE Deep Vein Thrombosis/Pulmonary Embolism Present on Admission: No
[2019-04-24] MEDS: levoFLOXacin 500 MG/100 ML PIGGYBACK 100 MG IV (20:32)
--- NOTE | 2019-04-24 23:45 | PC.NURSE ---
[place] shift note: Dressing changed as ordered, Dr. Goyal at bedside, removal of dressing and changed. Pre medicated prior to procedure. x 6 stitches to dorsal region of right wrist, no redness or swelling. Surgical wound to right wrist 10 cm x 2.2 cm x 0.5, healing edges, wound bed red/pink, no abnormal drainage or odor.
[2019-04-25] VITALS (9 sets, daily range): BP systolic 104–148; BP diastolic 65–85; PULSE 73–89; RESP 16–181; TEMP 36.5–37; O2SAT 93–100
[2019-04-25] MEDS: HYDROMORPHONE 2 MG TABLET PO ×8 (00:20→23:51)
--- NOTE | 2019-04-25 02:53 | PC.NURSE ---
Addendum entered by Adrian Delgado R.N. 04/25/19 06:43: 0450: Awake, states he has abdominal cramping and feels sweaty. CBG done, 231. Pt thinks the cramping is from not having a bowel movement. Original Note: Can Feeder Note: 0040: Awake, vital signs stable. IV in place in lt wrist. Dressing to rt arm cdi. CMS to rt hand wnl: pink and warm to touch, and with normal sensation; pt able to wiggle fingers. Pt having pain in rt hand/forearm. Medicated with Dilaudid 2mg po. 0230: Sleeping; respirations unlabored.
[2019-04-25 05:07] LABS: Vancomycin Trough 15.8 ug/mL (10-20)
[2019-04-25] MEDS: VANCOMYCIN 1,500 MG/300 ML FROZ.PIGGY 200 MG IV (05:25)
[2019-04-25] MEDS: VANCOMYCIN TROUGH 1 REQUEST MISC (06:39)
[2019-04-25 06:51] LABS: Add Manual Diff / Slide Review NO; Basophils Absolute Auto 100 /uL (0-100); Basophils Percent Auto 0.5 % (0-2); Eosinophils Absolute Auto 100 /uL (0-450); Eosinophils Percent Auto 0.8 % (2-4); Hematocrit 32.7 % (41-53); Hemoglobin 11.2 g/dL (13.5-17.5); Lymphocytes Absolute Auto 2800 /uL (1100-4500); Lymphocytes Percent Auto 23.3 % (25-40); Mean Corpuscular HGB Conc 34.2 % (30-36); Mean Corpuscular Hemoglobin 28.8 PG (26-34); Mean Corpuscular Volume 84.2 fL (80-100); Monocytes Absolute Auto 1400 /uL (0-900); Monocytes Percent Auto 11.7 % (3-14); Neutrophils Absolute Auto 7700 /uL (1500-7000); Neutrophils Percent Auto 63.7 % (50-75); Platelet Count 529 X10^3/uL (150-400); Red Blood Cell Count 3.88 X10^6/uL (4.5-5.9); White Blood Cell Count 12.1 X10^3/uL (4.5-11.0)
[2019-04-25 07:04] LABS: Blood Urea Nitrogen 21 mg/dL (9-20); Calcium 9.2 mg/dL (8.4-10.2); Carbon Dioxide 21 mmol/L (22-32); Chloride 102 mmol/L (98-107); Estimated Glomerular Filt Rate > 60.0 mL/min (>60); Glucose 171 mg/dL (70-100); HEMOLYSIS < 15 (0-50); Potassium 4.9 mmol/L (3.4-5.1); Sodium 133 mmol/L (137-145)
--- NOTE | 2019-04-25 09:15 | DI.RAD.S_ITS ---
PROCEDURE: XR CHEST FOR PICC 1V INDICATIONS: line placement COMPARISON: None. FINDINGS: PICC was placed by the intravenous therapy team from the left side. The tip of PICC projecting to the area of SVC. IMPRESSION: Tip of PICC projects to the area of SVC. Dictated by: Karsten Ramírez M.D. on 04/25/2019 at 9:39 Approved by: Karsten Ramírez M.D. on 04/25/2019 at 9:42
[2019-04-25] MEDS: POLYETHYLENE GLYCOL 3350 17 GM POWD.PACK PO (09:54)
[2019-04-25] MEDS: ASPIRIN EC 81 MG TABLET PO ×2 (09:59→20:21)
[2019-04-25] MEDS: LISINOPRIL 20 MG TABLET 40 MG PO (09:59)
[2019-04-25] MEDS: DOCUSATE 100 MG CAPSULE PO ×2 (09:59→20:20)
[2019-04-25] MEDS: ACETAMINOPHEN 325 MG TABLET 975 MG PO ×3 (09:59→20:20)
[2019-04-25] MEDS: HEPARIN 5,000 UNIT/ML VIAL 5000 UNIT SUBCUT ×2 (10:00→20:21)
[2019-04-25] MEDS: INSULIN ASPART 100 UNIT/ML INSULN PEN SUBCUT ×3 (10:02→18:28)
--- NOTE | 2019-04-25 11:44 | P.PN_ITS ---
Subjective Subjective Date Patient Seen: 04/25/19 Time Patient Seen: 11:45 Interval history: POD #3 s/p right hand and wrist irrigation and debridement with excisional debridement of hematoma and soft tissue within irrigation and debridement of the right wrist with a dorsal arthrotomy with Dr. Sanchez. Pain was worse overnight but controlled with medications. He has remained afebrile. Denies fevers, chills, Cultures have been finalized showing no growth, though dillon sandoval has been on antibiotics since his previous I&D. Wet to dry dressing change performed by nursing staff this AM. Exam Vital Signs (past 8 hours): - 04/25/19 04:46 04/25/19 08:00 Temperature 98.6 F 98.5 F Pulse Rate 86 88 Respiratory Rate 16 16 Blood Pressure 148/85 H 123/77 Pulse Oximetry 100 93 Oxygen Delivery Method Room Air Oxygen Flow Rate 97 Narrative Exam Narrative: 48 year old male resting comfortably in bed. Alert and oriented in no acute distress. Dressing in place over right hand is CDI. Patient able to move all fingers. Sensation intact to light touch. Brisk capillary refill. Objective Labs Result Diagrams: 04/25/19 06:36 04/25/19 06:36 Labs: Laboratory Results - last 24 hr 04/23/19 04/25/19 04/25/19 17:26 04:35 06:36 WBC 12.1 H RBC 3.88 L Hgb 11.2 L Hct 32.7 L MCV 84.2 MCH 28.8 MCHC 34.2 RDW 16.0 H Plt Count 529 H Neut % (Auto) 63.7 Lymph % (Auto) 23.3 L [place] % (Auto) 11.7 Eos % (Auto) 0.8 L Baso % (Auto) 0.5 Neut # (Auto) 7700 H Lymph # (Auto) 2800 [place] # (Auto) 1400 H Eos # (Auto) 100 Baso # (Auto) 100 Sodium Potassium Chloride Carbon Dioxide BUN Creatinine Estimated GFR BUN/Creatinine Ratio Glucose Hemoglobin A1c 7.6 H Calcium Vancomycin Trough 15.8 04/25/19 06:36 WBC RBC Hgb Hct MCV MCH MCHC RDW Plt Count Neut % (Auto) Lymph % (Auto) [place] % (Auto) Eos % (Auto) Baso % (Auto) Neut # (Auto) Lymph # (Auto) [place] # (Auto) Eos # (Auto) Baso # (Auto) Sodium 133 L Potassium 4.9 Chloride 102 Carbon Dioxide 21 L BUN 21 H Creatinine 0.50 L Estimated GFR > 60.0 BUN/Creatinine Ratio 42.0 H Glucose 171 H Hemoglobin A1c Calcium 9.2 Vancomycin Trough Assessment & Plan Post-op Postoperative Procedures: Procedures Operation Date: 04/22/19 16:45 Actual Procedures Side Surgeon p Incision and Drainage Wound/Extremity Right Maida Faizan Sanchez MD Patient is progressing well post operatively. He is to be continued on antibiotics likely for 6 weeks. PICC line placed today in anticipation of this. Wound care consulted for possible placement of wound vac to dorsal wound, we appreciate them following. Continue BID wet to dry dressing changes until evaluated by wound care. Pending consult from infectious disease for continued antibiotic recommendations. Quality VTE Deep Vein Thrombosis/Pulmonary Embolism Present on Admission: No
--- NOTE | 2019-04-25 11:47 | PM.PN.1 ---
Subjective Subjective Date Patient Seen: 04/25/19 Time Patient Seen: 11:47 Interval history: He is seen today to follow up his right wrist recurrent infection and his new diagnosis of type 2 DM. He also has hypertension. His case is discussed extensively with orthopedics and with infectious disease - Dr. Putnam. The laboratory will be doing additional send out tests on his cultures including mycobacteria and fungal tests done at [facility]. [employer] service is working on coordinating with his insurance, his family, etc. the location of his planned 6 week course of IV cefazolin. His white blood count has dropped from 20/2 down to 12.1. His blood sugars 171 consistent with his known newly diagnosed type 2 diabetes Exam Vital Signs (past 8 hours): - 04/25/19 04:46 04/25/19 08:00 Temperature 98.6 F 98.5 F Pulse Rate 86 88 Respiratory Rate 16 16 Blood Pressure 148/85 H 123/77 Pulse Oximetry 100 93 Oxygen Delivery Method Room Air Oxygen Flow Rate 97 Narrative Exam Narrative: He is alert and oriented x3. No apparent distress. Heart is regular rate and rhythm without murmur. Lungs are clear to auscultation bilaterally Extremities have no ankle edema. There is a clean dressing on the right wrist. He is able to move the fingers normally. Objective Labs Result Diagrams: 04/25/19 06:36 04/25/19 06:36 Labs: Laboratory Results - last 24 hr 04/23/19 04/25/19 04/25/19 17:26 04:35 06:36 WBC 12.1 H RBC 3.88 L Hgb 11.2 L Hct 32.7 L MCV 84.2 MCH 28.8 MCHC 34.2 RDW 16.0 H Plt Count 529 H Neut % (Auto) 63.7 Lymph % (Auto) 23.3 L [place] % (Auto) 11.7 Eos % (Auto) 0.8 L Baso % (Auto) 0.5 Neut # (Auto) 7700 H Lymph # (Auto) 2800 [place] # (Auto) 1400 H Eos # (Auto) 100 Baso # (Auto) 100 Sodium Potassium Chloride Carbon Dioxide BUN Creatinine Estimated GFR BUN/Creatinine Ratio Glucose Hemoglobin A1c 7.6 H Calcium Vancomycin Trough 15.8 04/25/19 06:36 WBC RBC Hgb Hct MCV MCH MCHC RDW Plt Count Neut % (Auto) Lymph % (Auto) [place] % (Auto) Eos % (Auto) Baso % (Auto) Neut # (Auto) Lymph # (Auto) [place] # (Auto) Eos # (Auto) Baso # (Auto) Sodium 133 L Potassium 4.9 Chloride 102 Carbon Dioxide 21 L BUN 21 H Creatinine 0.50 L Estimated GFR > 60.0 BUN/Creatinine Ratio 42.0 H Glucose 171 H Hemoglobin A1c Calcium 9.2 Vancomycin Trough Assessment & Plan Assessment & Plan narrative: 1. 48-year-old male admitted to the hospital for probable septic arthritis of the right wrist. Patient is status post I&D with washout. Cultures on a previous I and D grew group G Streptococcus. The patient had an allergic reaction to penicillin. He currently is on IV vancomycin and levofloxacin which will be stopped today and changed to the IV cefazolin. Cultures thus far are no growth. Discussed with with microbiology and with Infectious Disease, Dr. Putnam in [place]. We will send out tissue cultures to the to confirm no Mycobacteria or fungal present. The patient will need IV antibiotics for 6 weeks. Infectious Disease would like to see him as an outpatient once this next at home antibiotic course is initiated, in order to follow-up the send out cultures. Considered and discounted the possibility that occult gout is contributing/causing this recurrent inflammation/infection. Check uric acid tomorrow. 2. Type 2 diabetes, new onset, patient previously started on metformin and developed significant diarrhea with this. The metformin has since been held. Patient is on a basal bolus insulin at this time. Would consider low-dose metformin as an outpatient 3. Hypertension, chronic continue lisinopril 4. Hyponatremia, will continue to follow, 133 on 04/25 PICC now in for 6 weeks of IV antibiotics at home in [place]. Appreciate social service assistance. Quality VTE Deep Vein Thrombosis/Pulmonary Embolism Present on Admission: No
--- NOTE | 2019-04-25 13:55 | DIET.PN ---
Dietary Progress Note RD f/u to discuss A1c results of 7.6 indicating new onset DM2 which likely complicated healing of arm wound. Reiterated moderating carb consumption to 45g/meal and alcohol avoidance. Gave pt our RD/CDE's business card as OP diabetes education is indicated. Pt had one BG reading this morning of 241, otherwise has been <200 to support wound healing, pt is drinking Michael bid, on insulin. Pt has hx of drinking 6+ beers/d but denies any etoh consumption for past 12d. Pt had home foods of vanilla low-fat yogurt, granola, fresh fruit, and mixed nuts in room. HT: 177.8cm WT: 76.6kg BMI: 24.2 Labs: Na 133 L, BUN 21 H, K+ 4.9BG 163-241 H, A1c 7.6 H Raul:20 Nutrition Diagnosis: Resolving Food and nutrition related knowledge deficit r/t increased nutrient needs for wound healing (consistent carb, increase in Vit A, Vit C, zinc and PRO, etoh avoidance) aeb abnormal lab values (BG 163-250), delayed wound healing, pt asking what to eat to help wounds heal. Interventions: Coordinate f/u diabetes education with pt's PCP Perlita Zavala. Diet Order: CCD EER: 2500kcal, 90g PRO (1.2g/kg wounds), 2.6L fluids Monitoring/Evaluations: following BG
--- NOTE | 2019-04-25 16:04 | PC.NURSE ---
Addendum entered by Rekha Logan R.N. 04/25/19 16:16: Pt has kept Right arm elevated on pillows above heart level when in bed. Addendum entered by Rekha Logan R.N. 04/25/19 16:11: pt has not had a BM for 3 days, scheduled and prn meds given, pt did not want prn suppository. Prune juice cocktail given. Pt's right hand, he is able to flex all fingers, decreased extension to right 3 outer fingers. Radial pulse +, cap refill < 2 secs. Denies numbness/tingling. Original Note: Day Shift- Right FA kami wrap, kerlix wrap removed. Right FA gauze removed for small to moderate amount of yellow drainage to 75% of 3 gauze 4X4 dressing. Wound bed cleansed with NS, granulation tissue seen in wound bed. Surrounding skin intact. Skin prep applied to wound edges, NS wet to dry dressing applied per order. 1 folded moist gauze in wound bed, covered with 3 dry 4X4 gauze, covered with kerlix and kami wrap. Right palm incision well approximated with sutures intact, cleansed with NS, dried blood removed, no active drainage. Covered with same kerlix wrap and kami wrap. Pt tolerated well. Pt's pain reported from 6-02/15, prn Dilaudid given X2 at 100/1350. OOB indep, ambulating in rooms and halls with steady gait using IV pole. Pt's S.O. Linda present during morning hours and plans to spend the night. CIWA score 1.
--- NOTE | 2019-04-25 16:51 | CM.DPC ---
DCP: continued: case received, EMR reviewed and met now with pt . Introduced self and role. Have also just now conferred with Dr. Paul and with Aj/Payal Deluna. An earlier discussion with [facility] revealed that they were not network with [facility] Care Medicaid. Note that pt has been on CIWA protocal and with score of 1 today. Pt clarified his home situation. He does not have a residence of his own, has a PO Box for mail and stays sometimes with his mother in [place] and sometimes with his girlfriend Lnida Granger who has been staying in his room at the hospital. (she was not in room at time of discussion). Pt said he had been told I have to go to a correction facility because my IV treatment will be needed more than one x a day. He appeared shocked when told a SNF was a Intermediate setting. He confirmed that if he can get the IV antibiotics at home Linda will be able to help him. Dr. Paul stated that he had just conferred with ID and had some ideas for what might work best for pt. He did not think a snf was the best place for pt it he was able to get needed care in home setting. Dr. Paul also said he did not think a wound vac would be needed and would likely be very difficult obtain authorization for same. Have now talked with Aj/Payal Deluna in followup to hand off note from colleague Valery. Aj says they did not have the full referral but a review of face sheet and discussion with his team a few minutes ago shows that he does have home benefit for same. Dr. Paul and pt are updated. Dr. Paul stated much should be clarified in terms of the d/c plan tomorrow. Will check in and follow. Plan also to take with Linda to make sure a plan with involves her assistance in a home setting is realistic. Did see that PT [place] did an initial eval with pt doing well in terms of mobility and balance.
[2019-04-25] MEDS: CEFAZOLIN 2 GM/100 ML FROZ.PIGGY IV (17:12)
--- NOTE | 2019-04-25 18:59 | PM.CN ---
History of Present Illness Consult details Date Patient Seen: 04/24/19 Time Patient Seen: 17:15 Chief complaint: nausea/vomiting/right arm pain Reason for consult: Evaluate surgical wound for possible NPWT. Requesting provider: Sangeeta Savage Narrative: The patient is a 48-year-old newly diagnosed type II diabetic [male] who, on 04/22/19, underwent right hand and wrist incision, debridement, and washout, by Maida Sanchez MD, for recurrent infection despite previous surgical and antibiotic therapy. IV antibiotic management on-board. Current wound care includes wet-to-dry dressing changes. [facility] Medical History Cellulitis (Inactive) Elevated blood sugar (Inactive) Hypertension (Acute) Surgical History H/O esophagogastroduodenoscopy (Acute) Status post wrist surgery (Acute) Social History marital status: household members: significant other lives independently: Yes alcohol intake: current Social History marital status: household members: significant other lives independently: Yes alcohol intake: current Meds Home Medications and Allergies Home Medications Medication Instructions Recorded Confirmed Type levofloxacin 750 mg PO DAILY 04/21/19 04/22/19 History lisinopril 40 mg PO DAILY 04/21/19 04/22/19 History metformin 500 mg PO BID #30 tab 04/21/19 04/22/19 Rx oxycodone-acetaminophen 1 tab PO Q6H PRN 04/21/19 04/22/19 History prednisone See Rx Instructions .ROUTE .COMPLEX 04/21/19 04/22/19 History Allergies Allergy/AdvReac Type Severity Reaction Status Date / Time Penicillins Allergy Rash Verified 04/21/19 10:57 Review of Systems Review of Systems Narrative: Constitutional: Denies fevers, chills, night sweats, anorexia, weight loss, fatigue, malaise. Integumentary: Reports wound mild drainage, moderate pain; Denies wound redness, odor. Exam Vital Signs (past 8 hours): - 04/25/19 12:00 04/25/19 16:00 04/25/19 18:51 Temperature 98.3 F 97.7 F Pulse Rate 73 77 83 Respiratory Rate 16 18 Blood Pressure 124/84 134/75 Pulse Oximetry 97 99 99 Oxygen Delivery Method Room Air Oxygen Flow Rate 0 Narrative Exam Narrative: Constitutional: VS reviewed (see above). NAD. Conversant. Eyes: Sclerae anicteric. Ears, Nose, Mouth, and Throat: Normal hearing Respiratory: Normal respiratory effort. Cardiovascular: Radial pulses 2+ and symmetrical. Capillary refill < 3 seconds. WWP. Musculoskeletal: Motor function to right hand shows weakness to finger extension. Ambulates without assistance. Steady. No digital cyanosis or clubbing. No prior amputations. Neurological: Sensory function normal RUE. No focal deficits. Psychiatric: Judgment intact. A&OX3. Affect appropriate. Integumentary (Hair, Skin) Inspection and palpation of skin and subcutaneous tissues: Bulky dressing to right forearm, wrist and hand taken down and reveals a full-thickness dorsal forearm/wrist surgical wound measuring 10 cm x 2.2 cm x 0.5cm. Wound margin is unattached. There is no tunneling, undermining, or sinus tract. A small amount of serous drainage is noted without odor. The wound bed contains healthy, bright red, granulation tissue. No hypergranulation, slough, eschar, or epithelialization noted. Healthy muscle/tendon exposed. Periwound TTP as expected post-operatively. Periwound texture noted for mild edema extending into hand, normal color, and normal moisture. Periwound temperature is WNL. No s/s infection present. There is a sutured volar incision that is intact and without erythema or purulent drainage. Objective Labs Result Diagrams: 04/25/19 06:36 04/25/19 06:36 Labs: Laboratory Results - last 24 hr 04/22/19 04/25/19 04/25/19 09:21 04:35 06:36 WBC 12.1 H RBC 3.88 L Hgb 11.2 L Hct 32.7 L MCV 84.2 MCH 28.8 MCHC 34.2 RDW 16.0 H Plt Count 529 H Neut % (Auto) 63.7 Lymph % (Auto) 23.3 L [place] % (Auto) 11.7 Eos % (Auto) 0.8 L Baso % (Auto) 0.5 Neut # (Auto) 7700 H Lymph # (Auto) 2800 [place] # (Auto) 1400 H Eos # (Auto) 100 Baso # (Auto) 100 VBG pH 7.36 VBG pCO2 37.6 L VBG pO2 52 H VBG HCO3 21 L VBG Total CO2 23 L VBG O2 Saturation 85 H VBG Base Excess -4.0 L Sodium Potassium Chloride Carbon Dioxide BUN Creatinine Estimated GFR BUN/Creatinine Ratio Glucose Calcium Vancomycin Trough 15.8 04/25/19 06:36 WBC RBC Hgb Hct MCV MCH MCHC RDW Plt Count Neut % (Auto) Lymph % (Auto) [place] % (Auto) Eos % (Auto) Baso % (Auto) Neut # (Auto) Lymph # (Auto) [place] # (Auto) Eos # (Auto) Baso # (Auto) VBG pH VBG pCO2 VBG pO2 VBG HCO3 VBG Total CO2 VBG O2 Saturation VBG Base Excess Sodium 133 L Potassium 4.9 Chloride 102 Carbon Dioxide 21 L BUN 21 H Creatinine 0.50 L Estimated GFR > 60.0 BUN/Creatinine Ratio 42.0 H Glucose 171 H Calcium 9.2 Vancomycin Trough 04/24/19: WBC 10.9; X-ray right wrist shows no focal osseous destruction to suggest advanced osteomyelitis. 04/23/19: WBC 11.0; CRP 2.6 04/22/19: WBC 22.0; CRP 1.3; ESR 57; lactate 2.7-->1.7; Intraoperative specimens of the hand and wrist for Gram stain have shown white blood cells, but no organisms. Cultures returned no growth, however antibiotics were already on-board for previous operative culture that grew B-hemolytic Strep G. Blood cultures NG to date. 04/21/19: WBC 18.4 with 80% neutrophils; CRP 0.7; ESR 60 Assessment & Plan Assessment & Plan narrative: Full-thickness dorsal forearm/wrist surgical wound. No current evidence of infection. Adequate perfusion. Goal: Closure of the wound/ulcer. Prevent deterioration of the wound. Preserve function and activity. Initiate NPWT. NPWT is indicated due to presence of co-morbidities (newly diagnosed DM II/smoking), high risk of infection, and need for accelerated granulation tissue. He has no contraindication to NPWT. D/C tobacco strongly advised. Continue efforts to control blood glucose to optimize wound healing. We would be happy to have him follow-up in wound clinic for outpatient wound care and VAC management. Outpatient VAC to be arranged by discharge planning.
[2019-04-25] MEDS: BISACODYL 10 MG SUPP PR (20:38)
[2019-04-25] MEDS: SODIUM CHLORIDE 0.9% FLUSH 10 ML IV (22:09)
[2019-04-26] VITALS (10 sets, daily range): BP systolic 112–147; BP diastolic 60–90; PULSE 69–86; RESP 16–17; TEMP 36.6–37.3; O2SAT 96–100
[2019-04-26] MEDS: CEFAZOLIN 2 GM/100 ML FROZ.PIGGY IV ×3 (00:49→15:58)
[2019-04-26] MEDS: HYDROMORPHONE 2 MG TABLET PO ×6 (03:23→20:02)
--- NOTE | 2019-04-26 04:35 | PC.NURSE ---
Addendum entered by Benny Russ R.N. 04/26/19 05:36: Pt is still having pain control issues and oxycodone 5mg was given at 0530. Pt c/o pain 02/15. Pt also complaining of abdominal cramping and feels like he is constipated. Pt was given rectal suppository at 0530. Original Note: VSS, lung sounds clear bilaterally, CMS intact. pain control an issue. Pt is in need of Q3 2mg dilaudid, states pain 03/18. Pt refused to wear SCD's, was educated about the use of SCD's. Pt BS: 135 on this shift. Call light is in within reach.
[2019-04-26] MEDS: OXYCODONE IR 5 MG TABLET PO (05:24)
[2019-04-26] MEDS: BISACODYL 10 MG SUPP PR (05:24)
[2019-04-26 06:40] LABS: Add Manual Diff / Slide Review NO; Basophils Absolute Auto 100 /uL (0-100); Basophils Percent Auto 0.9 % (0-2); Eosinophils Absolute Auto 100 /uL (0-450); Eosinophils Percent Auto 0.9 % (2-4); Hematocrit 33.7 % (41-53); Hemoglobin 11.6 g/dL (13.5-17.5); Lymphocytes Absolute Auto 2500 /uL (1100-4500); Lymphocytes Percent Auto 23.9 % (25-40); Mean Corpuscular HGB Conc 34.3 % (30-36); Mean Corpuscular Hemoglobin 29.2 PG (26-34); Mean Corpuscular Volume 85.3 fL (80-100); Monocytes Absolute Auto 1200 /uL (0-900); Monocytes Percent Auto 11.4 % (3-14); Neutrophils Absolute Auto 6600 /uL (1500-7000); Neutrophils Percent Auto 62.9 % (50-75); Platelet Count 547 X10^3/uL (150-400); Red Blood Cell Count 3.95 X10^6/uL (4.5-5.9); Red Cell Distribution Width 15.5 % (11.6-14.8); White Blood Cell Count 10.5 X10^3/uL (4.5-11.0)
[2019-04-26 06:48] LABS: Uric Acid 6.1 mg/dL (3.5-8.5)
[2019-04-26] MEDS: SODIUM CHLORIDE 0.9% FLUSH 10 ML IV ×2 (08:29→21:32)
[2019-04-26] MEDS: HEPARIN 5,000 UNIT/ML VIAL 5000 UNIT SUBCUT ×2 (08:29→20:03)
[2019-04-26] MEDS: ASPIRIN EC 81 MG TABLET PO ×2 (08:30→20:03)
[2019-04-26] MEDS: POLYETHYLENE GLYCOL 3350 17 GM POWD.PACK PO (08:30)
[2019-04-26] MEDS: LISINOPRIL 20 MG TABLET 40 MG PO (08:30)
[2019-04-26] MEDS: DOCUSATE 100 MG CAPSULE PO (08:30)
[2019-04-26] MEDS: ACETAMINOPHEN 325 MG TABLET 975 MG PO ×3 (08:31→20:03)
[2019-04-26] MEDS: INSULIN ASPART 100 UNIT/ML INSULN PEN SUBCUT ×4 (08:45→20:32)
--- NOTE | 2019-04-26 10:00 | PM.PNPO.1 ---
Subjective Subjective Date Patient Seen: 04/26/19 Time Patient Seen: 10:00 Interval history: Patient's pain is [id number]. Denies fever chills. No nausea vomiting. Exam Vital Signs (past 8 hours): - 04/26/19 03:31 04/26/19 04:00 04/26/19 08:00 Temperature 99.2 F 98.4 F Pulse Rate 80 81 Respiratory Rate 16 16 Blood Pressure 137/90 131/73 Pulse Oximetry 96 96 97 Oxygen Delivery Method Room Air Oxygen Flow Rate 0 Narrative Exam Narrative: 48-year-old male resting comfortably in bed in no apparent distress. Dressing removed. Full-thickness dorsal forearm wound with healthy bright red granulation tissue noted. Sensation grossly intact to light touch distal right upper extremity. Motor functions intact. Good capillary refill. Objective Labs Result Diagrams: 04/26/19 06:27 04/25/19 06:36 Labs: Laboratory Results - last 24 hr 04/22/19 04/26/19 04/26/19 09:21 06:27 06:27 WBC 10.5 RBC 3.95 L Hgb 11.6 L Hct 33.7 L MCV 85.3 MCH 29.2 MCHC 34.3 RDW 15.5 H Plt Count 547 H Neut % (Auto) 62.9 Lymph % (Auto) 23.9 L [place] % (Auto) 11.4 Eos % (Auto) 0.9 L Baso % (Auto) 0.9 Neut # (Auto) 6600 Lymph # (Auto) 2500 [place] # (Auto) 1200 H Eos # (Auto) 100 Baso # (Auto) 100 VBG pH 7.36 VBG pCO2 37.6 L VBG pO2 52 H VBG HCO3 21 L VBG Total CO2 23 L VBG O2 Saturation 85 H VBG Base Excess -4.0 L Uric Acid 6.1 SPEC #: [id number] JERICA: 04/22/19 STATUS: COMP REQ #: [id number] SPDESC: Right RECD: 04/22/[address]: Maida Sanchez MD SOURCE: Wrist ENTR: 04/22/[address]: Sangeeta Savage MD FAX TO: ORDERED: WOUND Cx and GS COMMENTS: Comment right wrist carpal canal for aerobic culture Procedure Result Verified Site Gram Stain Final 04/22/19 No Organism Seen No organisms seen White blood cells Few mixed mono and poly WBCs Aerobic Culture for wounds Final 04/25/19-1000 No growth. Anaerobic Culture Final 04/23/19 Test not performed Assessment & Plan Post-op Postoperative Procedures: Procedures Operation Date: 04/22/19 16:45 Actual Procedures Side Surgeon p Incision and Drainage Wound/Extremity Right Maida Faizan Sanchez MD Status post right hand and wrist irrigation and debridement with excisional debridement of hematoma and some soft tissue, irrigation debridement right wrist with a dorsal arthrotomy April 22, 2019. Cultures from previous I and D grew group G Streptococcus. Patient will need IV antibiotics for 6 weeks. Patient will need Infectious Disease consultation after discharge from the hospital. Dr. Goyal consulted April 24, 2019 for surgical wound possible NPWT. Patient would benefit from outpatient wound care and VAC management. Outpatient VAC to be arranged by discharge planning. Patient would also benefit from occupational therapy evaluation while inpatient and will need occupational hand therapy as outpatient. Quality VTE Deep Vein Thrombosis/Pulmonary Embolism Present on Admission: No
--- NOTE | 2019-04-26 11:26 | PM.PN.1 ---
Subjective Subjective Date Patient Seen: 04/26/19 Time Patient Seen: 11:26 Interval history: He is seen today to follow up his right wrist infection, Hypertension, Diabetes Mellitus and Global Mild Hypokinesis. The wound is evaluate closely today and appears to be healing well although with tendon visible at the base. respiratory services manager have been working intensely to arrange appropriate outpatient treatment regimen. Is looking like he will be able to follow up with the [facility] wound clinic in [place] and with his orthopedic surgeon there who did the original surgery. That is his preference, close to where he lives. We review with him that his echocardiogram showed global mild hypokinesis with a 50% ejection fraction, which is consistent with his known history of hypertension. He was evaluated by the orthopedic physician assistant professor of economics and by the wound care physician who suggested that a wound VAC would be appropriate as an outpatient. His T-max is 99.2?. Exam Vital Signs (past 8 hours): - 04/26/19 03:31 04/26/19 04:00 04/26/19 08:00 Temperature 99.2 F 98.4 F Pulse Rate 80 81 Respiratory Rate 16 16 Blood Pressure 137/90 131/73 Pulse Oximetry 96 96 97 Oxygen Delivery Method Room Air Oxygen Flow Rate 0 Narrative Exam Narrative: He is alert and oriented x3. He is up and walking in the room and in the hallway. Heart is regular rate and rhythm without murmur. Lungs are clear to auscultation bilaterally. The right wrist wound is carefully examined today. There is a rather long and narrow wound with good granulation tissue at the base and a visible, moving tendon, when he moved his index finger. No signs of ongoing infection. On the palmar aspect of the wrist is a long incision with intact sutures and no signs of drainage or infection Objective Labs Result Diagrams: 04/26/19 06:27 04/25/19 06:36 Labs: Laboratory Results - last 24 hr 04/22/19 04/26/19 04/26/19 09:21 06:27 06:27 WBC 10.5 RBC 3.95 L Hgb 11.6 L Hct 33.7 L MCV 85.3 MCH 29.2 MCHC 34.3 RDW 15.5 H Plt Count 547 H Neut % (Auto) 62.9 Lymph % (Auto) 23.9 L [place] % (Auto) 11.4 Eos % (Auto) 0.9 L Baso % (Auto) 0.9 Neut # (Auto) 6600 Lymph # (Auto) 2500 [place] # (Auto) 1200 H Eos # (Auto) 100 Baso # (Auto) 100 VBG pH 7.36 VBG pCO2 37.6 L VBG pO2 52 H VBG HCO3 21 L VBG Total CO2 23 L VBG O2 Saturation 85 H VBG Base Excess -4.0 L Uric Acid 6.1 Assessment & Plan Assessment & Plan narrative: 1. 48-year-old male admitted to the hospital for probable septic arthritis of the right wrist. Patient is status post I&D with washout. Cultures on a previous I and D grew group G Streptococcus. The patient had an allergic reaction to penicillin. He currently is on IV cefazolin. Cultures thus far are no growth. Discussed with with microbiology and with Infectious Disease, Dr. Putnam in [place]. We will send out tissue cultures to the to confirm no Mycobacteria or fungal present. The patient will need IV antibiotics for 6 weeks. Infectious Disease would like to see him as an outpatient once this next at home antibiotic course is initiated, in order to follow-up the send out cultures. Considered and discounted the possibility that occult gout is contributing/causing this recurrent inflammation/infection. His Uric Acid level on 05/07 is only 6.1. Per ortho and wound care he will need a wound vac placed at a wound care center after discharge. He prefers to return to the [facility] wound care center in [place] for this. 2. Type 2 diabetes, new onset, patient previously started on metformin and developed significant diarrhea with this. The metformin has since been held. Patient is on a basal bolus insulin at this time. Would consider low-dose metformin as an outpatient 3. Hypertension, chronic continue lisinopril 4. Hyponatremia, will continue to follow, 133 on 04/25 PICC now in for 6 weeks of IV antibiotics at home in [place]. Appreciate social service assistance and will discharge as soon as [facility] arrangements have been made. . Quality VTE Deep Vein Thrombosis/Pulmonary Embolism Present on Admission: No
[2019-04-26] MEDS: BISACODYL 5 MG TABLET 10 MG PO (14:51)
--- NOTE | 2019-04-26 15:15 | OT.IP.EVAL ---
Current Diagnoses Encounter for other specified aftercare (04/22/19) Surgery Performed Operation Date: 04/22/19 16:45 Actual Procedures p Incision and Drainage Wound/Extremity(Right) - Maida Sanchez MD Past Medical History (Last Reviewed 04/25/19 @ 19:01 by Luis Goyal MD) Cellulitis (Inactive) Elevated blood sugar (Inactive) Hypertension (Acute) Surgical History (Last Reviewed 04/25/19 @ 19:01 by Luis Goyal MD) H/O esophagogastroduodenoscopy (Acute) Status post wrist surgery (Acute) Occupational Therapy Inpatient Evaluation/Re-Eval M1 PT/OT-IP Prior Functional Status Start: 04/23/19 08:10 Freq: NEEDED Status: Active Protocol: Document 04/23/19 10:00 HH (Rec: 04/23/19 11:59 HH [id number]) Medical Review Prior Functional Status Medical History Reviewed Yes Communication no deficits noted. Able to make needs known Mobility and Gait independent with home and community mobility Activities of Daily Living and IADL's independent with ADLs and IADLs Social History Household Members significant other,family Living Arrangements House Number of Floors (Floors) One Floor Number of Stairs To Enter/Railing? 2 ALEXYS without rails Home Environment Standard Height Toilet,Walk in Shower,Tub/Shower Home Equipment Front Wheel Walker,Straight Cane,Shower Seat with Backrest ,Grab Bars In Shower Employment Status Unemployed Additional Social History Comment Pt lives in [place] with his girlfriend and he also stays with his mother occsasionally who lives close as well. He stated his girlfriend Linda will be able to assist at home. Pt has been receiving wound care and I&D x 2 at [facility]. Current D/C plan would be attending outpatient wound care clinic. per Dr. Sanchez note: previous culture grew beta-hemolytic strep group G sensitivities were not previously run. M1 PT/OT-IP Prior Functional Status Start: 04/26/19 16:50 Freq: NEEDED Status: Active Protocol: Document 04/26/19 16:50 CGR (Rec: 04/26/19 16:58 CGR [email or web address]) Medical Review Prior Functional Status Medical History Reviewed Yes Communication no deficits noted. Able to make needs known Mobility and Gait independent with home and community mobility Activities of Daily Living and IADL's independent with ADLs and IADLs Social History Household Members significant other Living Arrangements House Number of Floors (Floors) One Floor Number of Stairs To Enter/Railing? 0 Employment Status Unemployed Additional Social History Comment Pt is liveing between his mothers house and his girlfriends house. M2 OT-IP Current Condition Start: 04/26/19 16:50 Freq: Status: Active Protocol: Document 04/26/19 16:50 CGR (Rec: 04/26/19 16:58 CGR [email or web address]) Occupational Therapy Current Condition Current Condition Evaluation Date 04/26/19 Treatment Diagnosis R arm wound Diagnosis Onset Date 04/25/19 M3 OT- IP Subjective and Pain Start: 04/26/19 16:50 Freq: Status: Active Protocol: Document 04/26/19 16:50 CGR (Rec: 04/26/19 16:58 CGR [email or web address]) OT- Subjective Occupational Therapy Visit Type Type Initial Evaluation Visit Start Time 14:48 Visit Stop Time 15:15 Total Visit Minutes 27 OT Pain Assessment Pain When Pain Assessed At Rest Pain Present Pain Present Pain Reported Location right hand Intensity 7 Scale Used Numeric (1 - 10) Management Techniques Distraction,Modification of Treatment M6 OT- IP Functional Cognition Start: 04/26/19 16:50 Freq: Status: Active Protocol: Document 04/26/19 16:50 CGR (Rec: 04/26/19 16:58 CGR [email or web address]) Cognitive Factors Limiting Selfcare Function Cognitive Ability Level of Alertness Alert Patient Orientation Name,Age,Birthday,Month,Date, Year,Day of Week,Place, Situation OT- Vision and Hearing OT- Hearing Assessment OT- Hearing Assessment WFL OT- Vision Assessment Visual Acuity WFL M7 OT- IP Mobility and Balance Start: 04/26/19 16:50 Freq: Status: Active Protocol: Document 04/26/19 16:50 CGR (Rec: 04/26/19 16:58 CGR [email or web address]) OT- Bed Mobility Assessment Rolling Type of Rolling Roll to Right,Roll to Left Level of Assistance Independent Supine to Sit Supine to Sit Assist Independent Sit to Supine Sit to Supine Assist Independent Scooting Scooting to Edge of Bed Independent OT-Transfer Assessment Sit to and From Stand Sit to and from Stand Independent Transfers Transfer Ability Independent Technique Transfer Destination Bed Transfer Technique Stand Step Pivot Devices Transfer Assistive Devices None OT- Balance Assessment Sitting Balance and Reactions Static Sitting Balance Ability Normal Dynamic Sitting Balance Ability Normal M8 OT- IP Objective Assessments Start: 04/26/19 16:50 Freq: Status: Active Protocol: Document 04/26/19 16:50 CGR (Rec: 04/26/19 16:58 CGR [email or web address]) OT Gross Range of Motion Upper Extremity Range of Motion Assessment Right Impaired ROM Impairments R wrist and fingers limited by pain and swelling. Pt is unable to touch finger to thumb. M9 OT- IP Assessment and Plan Start: 04/26/19 16:50 Freq: Status: Active Protocol: Document 04/26/19 16:50 CGR (Rec: 04/26/19 16:58 CGR [email or web address]) OT Summary Assessment and Plan Potential Rehabilitation Potential Good Analytic Complexity at Evaluation Low Summary OT Impairments Pain,Range of Motion,Strength, Coordination Progress Towards Goals Progressing Toward Goals Assessment Summary Pt presents as a low complexity evauation. Per MD, finger exercises only to address limited range. 6 pack handout provided and instructed pt to perform each exercise x10 reps x 3 times a day. Performed one set of exercises in this session. Discussed wearing elastic waist band pants and shoes without ties or shoes with losened ties so that he can slip shoe on without doing up laces. Pt states understanding of need to perform exercises and demonstrates ability to follow handout. Pt will benefit from follow up to answer questions. Goals OT-Other Goals Pt will demonstrate ability to perform hand exercises per handout without VC. Days to Meet Goals 2 Frequency of Treatment Frequency Of Treatment Once a Day Treatment Plan OT Treatment Plan Therapeutic Exercises Discharge Recommendations OT Discharge Recommendations Home Home Equipment Needs none
--- NOTE | 2019-04-26 16:04 | CM.DPC ---
DCP: continued to work on a safe and appropriate d/c plan for this pt and new information was provided. Dr. Ellington's note of late Sunday was available and noted. His recommendation was for wound vac after discharge and followup at the wound care clinic. Had a discussion by phone with Quyen Rockwell RN who has until very recently worked as wound care nurse with Dr. Ellington re advice for next steps in this process ( as there are no specific vac recommendation and Dr. Ellington is not available until Sunday ) was had by this DCPlanner. Quyen advises that pt be set up for an appt at the Wound Care Clinic at d/c and she said that the nurses at the clinic would then obtain the needed insurance authorization after assessing pt for type of vac and rest of specifics. Pt is currently getting wet to dry dressing changes and would be expected to d/c on this. Updated Dr. Paul who had conferred with ortho AUTUMN Fitzpatrick after both observed the wound. AUTUMN Fitzpatrick confirmed that the ortho team agreed a wound vac plan would be good but deferred to wound care clinic for the specifics of this. Met then with pt and girlfriend Linda. Linda confirms that pt will be recovering at her home but both say they would rather go to the [facility] clinic in [place] as they live in [place]. Both confirm that the plan was already to follow up at the [facility] but that pt became ill and wound looked very bad before they were able to be seen. They prefer to work with the surgeon who did the original surgery and note he is associated with the [facility]. They planned to discuss further with Dr. Paul and have all the paperwork from [facility] in the room with pt. Both also wish to do the home antibiotics with [facility] and feel relatively comfortable with that. Linda says her concern is managing the wound as she does not have the expertise but is he can be see at the [facility] clinic should be fine. Dr. Paul was updated and agrees this seems best plan [facility] appt cannot be set up until Sunday [facility] who has excellent prior experienc from her own work at [facility] will be available Sunday to assist with this. Will be following up tomorrow.
[2019-04-26] MEDS: HYDROMORPHONE 0.5 MG INJ IV (20:07)
[2019-04-27] VITALS (9 sets, daily range): BP systolic 110–143; BP diastolic 61–91; PULSE 73–86; RESP 15–20; TEMP 36.6–37.4; O2SAT 95–100
[2019-04-27] MEDS: CEFAZOLIN 2 GM/100 ML FROZ.PIGGY IV ×3 (01:04→16:41)
[2019-04-27] MEDS: HYDROMORPHONE 2 MG TABLET PO ×7 (01:04→21:58)
[2019-04-27] MEDS: HYDROMORPHONE 0.5 MG INJ IV (03:13)
[2019-04-27] MEDS: BISACODYL 10 MG SUPP PR (03:52)
--- NOTE | 2019-04-27 06:04 | PC.NURSE ---
Pt having 8-9/10 right wrist pain. Dilaudid Q3 2mg given, and 1 dose of dilaudid IV 0.5 for breakthrough pain. Pt having abdominal cramping and pain, given suppository and prune juice cocktail. Pt was encouraged to ambulate in hallway and stated I've been ambulating in the room for the last hour. BS 168. VSS.
[2019-04-27] MEDS: SODIUM CHLORIDE 0.9% 250 ML 21 ML IV (08:51)
[2019-04-27] MEDS: SODIUM CHLORIDE 0.9% FLUSH 10 ML IV ×3 (08:54→21:58)
[2019-04-27] MEDS: HEPARIN 5,000 UNIT/ML VIAL 5000 UNIT SUBCUT ×2 (08:55→21:59)
[2019-04-27] MEDS: POLYETHYLENE GLYCOL 3350 17 GM POWD.PACK PO (08:55)
[2019-04-27] MEDS: DOCUSATE 100 MG CAPSULE PO (08:55)
[2019-04-27] MEDS: LISINOPRIL 20 MG TABLET 40 MG PO (08:55)
[2019-04-27] MEDS: ASPIRIN EC 81 MG TABLET PO ×2 (08:55→21:59)
[2019-04-27] MEDS: BISACODYL 5 MG TABLET 10 MG PO (08:55)
[2019-04-27] MEDS: ACETAMINOPHEN 325 MG TABLET 975 MG PO ×3 (08:55→21:59)
--- NOTE | 2019-04-27 08:55 | P.PN_ITS ---
Subjective Subjective Date Patient Seen: 04/27/19 Time Patient Seen: 08:55 Interval history: He is feeling better. Wrist still feels swollen but not as throbbing. Exam Vital Signs (past 8 hours): - 04/27/19 02:00 04/27/19 04:00 04/27/19 06:00 Temperature 98.2 F Pulse Rate 82 Respiratory Rate 16 Blood Pressure 143/91 H Pulse Oximetry 98 99 98 Oxygen Delivery Method Room Air Oxygen Flow Rate 0 Const Orientation: alert and oriented x3 Extrem Other: Right hand dressing CDI. Edges lifted up and skin edges are clean no erythema. Can slowly flex and extend his fingers but limited motion. Objective Labs Result Diagrams: 04/26/19 06:27 04/25/19 06:36 Assessment & Plan Post-op Postoperative Procedures: Procedures Operation Date: 04/22/19 16:45 Actual Procedures Side Surgeon p Incision and Drainage Wound/Extremity Right Maidacyndee Sanchez MD he is doing better. Maintain on IV antibiotics. Plan for discharge home with IV antibiotics and setting up wound care as an outpatient at [facility], most likely tomorrow. Quality VTE Deep Vein Thrombosis/Pulmonary Embolism Present on Admission: No
[2019-04-27] MEDS: INSULIN ASPART 100 UNIT/ML INSULN PEN SUBCUT ×2 (08:59→14:28)
[2019-04-27] MEDS: MAGNESIUM HYDROXIDE 30 ML UDC PO (09:04)
--- NOTE | 2019-04-27 12:15 | P.PN_ITS ---
Subjective Subjective Date Patient Seen: 04/27/19 Time Patient Seen: 12:19 Interval history: He is seen today to follow up his diabetes, hypertension, right wrist infection. The current plan is for discharge home tomorrow once [facility] home [facility] therapy has been confirmed. At that time they will also arrange an outpatient appointment for him at the [facility] in [place] for possible wound VAC placement. He is still quite constipated and so we spent some time discussing treatment options, most of which he already has been taking. His blood pressure is 143/91. Exam Vital Signs (past 8 hours): - 04/27/19 06:00 04/27/19 08:00 04/27/19 08:45 Temperature 99.3 F Pulse Rate 75 Respiratory Rate 15 Blood Pressure 134/82 Pulse Oximetry 98 98 99 Oxygen Delivery Method Room Air Oxygen Flow Rate 0 Narrative Exam Narrative: He is alert and oriented x3, in no apparent distress. Heart is regular rate and rhythm without murmur. Abdomen is soft but distended, nontender, no organomegaly. Extremities have no ankle edema. The right wrist dressing and the right palm sutures are in place without abnormality. Objective Labs Result Diagrams: 04/26/19 06:27 04/25/19 06:36 Assessment & Plan Assessment & Plan narrative: 1. 48-year-old male admitted to the hospital for Septic arthritis of the right wrist. Patient is status post I&D with washout. Cultures on a previous I and D grew group G Streptococcus. The patient had an allergic reaction to penicillin. He currently is on IV cefazolin. Repeat operative cultures thus far are no growth. Discussed with microbiology and with Infectious Disease, Dr. Putnam in [place]. We will send out tissue cultures to the to confirm no Mycobacteria or fungal present. The patient will need IV antibiotics for 6 weeks. Infectious Disease would like to see him as an outpatient once this next at home antibiotic course is initiated, in order to follow-up the send out cultures. Considered and discounted the possibility that occult gout is contributing/causing this recurrent inflammation/infection. His Uric Acid level on 05/07 is only 6.1. Per ortho and wound care he will need a wound vac placed at a wound care center after discharge. He prefers to return to the [facility] wound care center in [place] for this. 2. Type 2 diabetes, new onset, patient previously started on metformin and developed significant diarrhea with this. The metformin has since been held. Patient is on a basal bolus insulin at this time. Would consider low-dose metformin as an outpatient 3. Hypertension, chronic continue lisinopril 4. Hyponatremia, will continue to follow, 133 on 04/25 5. Constipation. Adding Milk of Magnesia to current stool agents. PICC now in for 6 weeks of IV antibiotics at home in [place]. The stop date will be June 03. Appreciate social service assistance and will discharge as soon as [facility] arrangements have been made, likely tomorrow 04/28. Quality VTE Deep Vein Thrombosis/Pulmonary Embolism Present on Admission: No
--- NOTE | 2019-04-27 14:17 | PC.NURSE ---
Day Shift- Pt A&OX4, able to make his needs known using call light. Low fall risk, Ambulating in room and halls indep with steady gait. Rates 6-8/10 aching to right arm/wrist. PRN Dilaudid po given at 0855 and 1200. Pt good with keeping right arm elevated on pillows while in bed and does hold hand above head at times too. Upper abd cramping intermittent, tolerable today. PRN and scheduled bowel meds given. Dr. Paul aware of no significant BM post op yet. New order for MOM ordered and given to pt. Pt had small soft/fluff pieces of BM. Voiding qs. Denies bloating, abd distention. Right arm dressing changed at 1145. Right FA wound bed has good granulation tissue, muscle and tendon visualized. Wound edges slight macerated. Skin prep applied. Pictures taken with Acute Care unit camera. 1-4X4 NS moist gauze placed in wound bed, covered with 4-4X4 dry gauze, wrapped with kerlix rolled gauze and kami wrap placed. Also right palm incision well approximated with sutures intact, incision cleansed with NS and pat dry, no active bleeding, dry old blood removed. Pt tolerated fair.
[2019-04-27] MEDS: INFLUENZA VACCINE 0.5 ML SYRINGE IM (16:40)
--- NOTE | 2019-04-27 17:30 | PC.NURSE ---
Assumed care of pt at 1500. Pt ambulating in halls during hand-off. Drsg to R. wrist c/d/i. Plan to change drsg this shift per orders. Reports mild tingling to R. hand/fingers but able to wiggle fingers, brisk cap refill, warm to touch. PICC to [facility]. Plan to change drsg this shift. Medicating per SEP. Student nurse participating in care/assessments. All care provided has been under the supervision of this global technical writer.
[2019-04-28] VITALS (10 sets, daily range): BP systolic 124–153; BP diastolic 74–82; PULSE 72–90; RESP 13–20; TEMP 36.4–37; O2SAT 96–100
[2019-04-28] MEDS: CEFAZOLIN 2 GM/100 ML FROZ.PIGGY IV ×2 (01:23→08:53)
[2019-04-28] MEDS: HYDROMORPHONE 2 MG TABLET PO ×5 (01:23→16:33)
[2019-04-28] MEDS: SODIUM CHLORIDE 0.9% FLUSH 10 ML IV ×2 (01:24→08:53)
[2019-04-28] MEDS: INSULIN ASPART 100 UNIT/ML INSULN PEN SUBCUT (08:38)
[2019-04-28] MEDS: ACETAMINOPHEN 325 MG TABLET 975 MG PO ×2 (08:40→14:27)
[2019-04-28] MEDS: LISINOPRIL 20 MG TABLET 40 MG PO (08:41)
[2019-04-28] MEDS: ASPIRIN EC 81 MG TABLET PO (08:41)
[2019-04-28] MEDS: POLYETHYLENE GLYCOL 3350 17 GM POWD.PACK PO (08:42)
[2019-04-28] MEDS: HEPARIN 5,000 UNIT/ML VIAL 5000 UNIT SUBCUT (08:42)
--- NOTE | 2019-04-28 12:44 | OT.IP.TRT ---
Current Diagnoses Encounter for other specified aftercare (04/22/19) Surgery Performed Operation Date: 04/22/19 16:45 Actual Procedures p Incision and Drainage Wound/Extremity(Right) - Maida Sanchez MD Occupational Therapy Treatment Note M2 OT-IP Current Condition Start: 04/26/19 16:50 Freq: Status: Active Protocol: Document 04/26/19 16:50 CGR (Rec: 04/26/19 16:58 CGR [id number]) Occupational Therapy Current Condition Current Condition Evaluation Date 04/26/19 Treatment Diagnosis R arm wound Diagnosis Onset Date 04/25/19 M3 OT- IP Subjective and Pain Start: 04/26/19 16:50 Freq: Status: Active Protocol: Document 04/28/19 13:18 CGR (Rec: 04/28/19 13:23 CGR [id number]) OT- Subjective Occupational Therapy Visit Type Type Treatment Note Visit Start Time 12:35 Visit Stop Time 12:44 Total Visit Minutes 9 Notes Pt sitting up in bed when OT entered. Pt demonstrated hand exercises x 5 reps for all exercises listed on hand 6 pack (handout in pts room). Added individual finger extention and performed with pt. Pt with increased fx of the fingers but still poor extension. Pt states he understand the exercises and will continue to perform. Occupational Therapy Visit Comments Patient Comments I was just about to do my exercises. OT Pain Assessment Pain When Pain Assessed At Rest Pain Present Pain Present Pain Reported Location right hand Intensity 6 Scale Used Numeric (1 - 10) Management Techniques Distraction,Timing of Activity with Medications M4 OT- IP ADL's Start: 04/26/19 16:50 Freq: Status: Active Protocol: Document 04/28/19 13:18 CGR (Rec: 04/28/19 13:23 CGR [id number]) OT [id number] Comments OT Self-Feeding Comments Not meal time M6 OT- IP Functional Cognition Start: 04/26/19 16:50 Freq: Status: Active Protocol: Document 04/26/19 16:50 CGR (Rec: 04/26/19 16:58 CGR [id number]) Cognitive Factors Limiting Selfcare Function Cognitive Ability Level of Alertness Alert Patient Orientation Name,Age,Birthday,Month,Date, Year,Day of Week,Place, Situation OT- Vision and Hearing OT- Hearing Assessment OT- Hearing Assessment WFL OT- Vision Assessment Visual Acuity WFL M7 OT- IP Mobility and Balance Start: 04/26/19 16:50 Freq: Status: Active Protocol: Document 04/26/19 16:50 CGR (Rec: 04/26/19 16:58 CGR [id number]) OT- Bed Mobility Assessment Rolling Type of Rolling Roll to Right,Roll to Left Level of Assistance Independent Supine to Sit Supine to Sit Assist Independent Sit to Supine Sit to Supine Assist Independent Scooting Scooting to Edge of Bed Independent OT-Transfer Assessment Sit to and From Stand Sit to and from Stand Independent Transfers Transfer Ability Independent Technique Transfer Destination Bed Transfer Technique Stand Step Pivot Devices Transfer Assistive Devices None OT- Balance Assessment Sitting Balance and Reactions Static Sitting Balance Ability Normal Dynamic Sitting Balance Ability Normal M8 OT- IP Objective Assessments Start: 04/26/19 16:50 Freq: Status: Active Protocol: Document 04/26/19 16:50 CGR (Rec: 04/26/19 16:58 CGR [id number]) OT Gross Range of Motion Upper Extremity Range of Motion Assessment Right Impaired ROM Impairments R wrist and fingers limited by pain and swelling. Pt is unable to touch finger to thumb. M9 OT- IP Assessment and Plan Start: 04/26/19 16:50 Freq: Status: Active Protocol: Document 04/28/19 13:18 CGR (Rec: 04/28/19 13:23 CGR [id number]) OT Summary Assessment and Plan Potential Rehabilitation Potential Good Analytic Complexity at Evaluation Low Summary OT Impairments Pain,Range of Motion,Strength, Coordination Progress Towards Goals Progressing Toward Goals Assessment Summary Pt participated in hand exercises as noted above. Finger extension added to the 6 pack hand exercise handout for pt to perform. Pt states understanding and performed all exercises x 5 reps. Pt is planned for discharge today. Goals OT-Other Goals Pt will demonstrate ability to perform hand exercises per handout without VC. Days to Meet Goals 2 Frequency of Treatment Frequency Of Treatment Once a Day Treatment Plan OT Treatment Plan Therapeutic Exercises Discharge Recommendations OT Discharge Recommendations Home Home Equipment Needs none
--- NOTE | 2019-04-28 15:28 | CM.DPC ---
DCP Cont: Patient was originally going to wound clinic in [place]. Wound clinic is no longer at [facility]. Tracey had called wound clinic, and they stated that patient needed to have wound vac at appt. Patient then decided to go to would clinic here, [facility]. Aj at [employer] has already set up for a nurse to come this pm for teaching. Spoke to Daja at [facility], for nursing filled out wound measurements on form, for [facility] needs this ordered and pre-authorized so he can have wound vac at his appt. Faxed over [facility] form to [facility], included wound measurements, face sheet, as well as history and physical. Updated Marta at wound clinic. She stated that she had already spoken to Page, and will attempt to have delivered before [facility] tomorrow. Patient has appt at [email or web address] at 1500, he is aware, gave him information. He is awaiting for [facility] nurse to come and see patient. P: Patient should be discharged today, and will follow up at wound clinic. Valery Restrepo RN/Assistant Sales Director
--- NOTE | 2019-04-28 16:25 | PC.NURSE ---
dressing changed according to Dr Ellington's new order with [employer]. girlfriend present, showed her how to change dressing as well in case. Pt aware that he has apt at wound care center tomorrow at 1500
--- NOTE | 2019-04-28 17:02 | PC.NURSE ---
Addendum entered by Iris Fish R.N. 04/28/19 20:28: Per [facility], I did not give patient 1600 dose of antibiotic, as he will do it when he gets home--to get on different schedule. Sandhya london RN in room to go over DC paperwork, all belongings gathered. Patient assisted via wheelchair to ER entrance by Sandhya london RN earlier this evening, patient to go home via private car with his girlfriend. Original Note: Evening notes: Jono resting in bed. Ambulated hallways. Drsg changed per new orders, see previous nurse note. Patient reported pain 7/10 to right wrist, medicated with Dilaudid 2 mg PO. He asked will I have something prescribed to take when I go home? I notified Dr Neff of patient request for PO pain meds upon DC. [facility] nurse now here in room to do IV antibiotic teaching with patient.
--- NOTE | 2019-04-29 20:48 | PM.DS.1 ---
History of Present Illness History of Present Illness Date Patient Seen: 04/28/19 Time Patient Seen: 10:30 Chief complaint: nausea/vomiting/right arm pain Narrative: As per SHANELLE Edmonds: Mr. Jono Chao is a 48-year-old male with history significant for hypertension, alcohol and tobacco abuse who presents to the hospital for progressive illness and nausea vomiting. The patient was recently an inpatient at [facility] where he was treated for abscess and cellulitis of the right forearm. He was admitted from 04/09 to 04/17/2019. His initially diagnosed with gout and then found to have streptococcal infection. He had to surgeries by Dr. javier of the right forearm on 04/11/2000 and then again on 04/13/2019. The patient states his wounds are draining and he has become progressively symptomatic dealt today he developed nausea vomiting prompting his presentation for evaluation. The patient denies chest pain or palpitations and has no shortness of breath or cough. He denies abdominal pain but has had nausea vomiting as well as diarrhea onset today after taking 1 dose metformin. He reports no other back or joint complaints other than his right wrist. Upon arrival in the ER the patient was afebrile with temperature 97.3?, heart rate 91, blood pressure of 92/69, respirations of 20 saturating 97% on room air. CT of the right forearm was obtained which found: Prominent edema and cutaneous and subcutaneous fluid,generalized inflammation involving the hand and wrist, multiple discrete loculated rim-enhancing fluid collections are present along the ventral aspect of the hand and wrist. Multifocal abscess formation without osteomyelitis. Patient has elevated white count at 22 has recently been on prednisone therapy, hemoglobin is 11.7 and hematocrit 36.2 and platelets 711. Electrolytes are within normal limits with a BUN of 35 and creatinine 1.4. His nonfasting glucose is 250. His sed rate of 57. VBG finds a pH 7.36 with pCO2 of 37.6, bicarb 21 and a base excess of -4. Attempts were made to have the patient care for by previous surgeon who is apparently out of town. Other options for transfer were explored without success. Dr. Sanchez was contacted who evaluated the patient and took him to the OR direct from the ER. Discharge Providers Provider Date of admission: 04/22/19 15:47 Discharge Date: 04/28/19 Consults: 04/22/19 18:55 Consult to Discharge Planning Routine Comment: Consult to Physical Therapy Evaluate & Treat Comment: Physician Instructions: Evaluate and Treat Consult to Respiratory Therapy Evaluate & Treat Comment: Physician Instructions: Evaluate and treat 04/22/19 21:17 Consult to Dietitian, Adult Routine Comment: Reason For Exam: hyperglycemia 04/22/19 21:19 Consult to Respiratory Therapy Evaluate & Treat Comment: daily smoker, intermittent wheezing Physician Instructions: Evaluate and treat 04/24/19 09:53 Consult to Physician Routine Comment: Consulting Provider: Maida Sanchez Reason for consultation: s/p I/&D Has provider been notified: Yes 04/25/19 11:58 Consult to Wound Care Routine Comment: S/P right FA/wrist I&D, possible wound VAC Consulting Provider: [facility] 04/26/19 10:10 Consult to Occupational Therapy Evaluate & Treat Comment: Physician Instructions: Evaluate and treat Discharge provider: Jono Daniel DO Summary Hospital Course Discharge Diagnosis: 1. septic arthritis of the right wrist, acute, present on admission 2. Type II DM, not on terminal operator insulin therapy. 3. Hypertension, chronic 4. Hyponatremia, mild, acute, present on admission 5. Constipation Hospital Course: 1. 48-year-old male admitted to the hospital for Septic arthritis of the right wrist. Patient is status post I&D with washout. Cultures on a previous I and D grew group G Streptococcus. The patient had an allergic reaction to penicillin. He currently is on IV cefazolin and will continue this as an outpatient. Repeat operative cultures thus far are no growth. Discussed with microbiology and with Infectious Disease, Dr. Putnam in [place]. Tissue cultures were sent to the to confirm no Mycobacteria or fungal present, these are pending. The patient will need IV antibiotics for 6 weeks. Infectious Disease would like to see him as an outpatient once this next at home antibiotic course is initiated, in order to follow-up the send out cultures. Considered and discounted the possibility that occult gout is contributing/causing this recurrent inflammation/infection. His Uric Acid level on 05/07 is only 6.1. Per ortho and wound care he will need a wound vac placed at a wound care center after discharge. This was arranged with Dr. Goyal at the wound care clinic here and will be placed the next day. He was provided with a short prescription of dilaudid to help control his pain. He should continue wet to dry dressing changes until the wound vac is placed. 2. Type 2 diabetes, new onset, patient previously started on metformin and developed significant diarrhea with this. Would recommend outpatient low dose metformin therapy. 3. Hypertension, chronic continue lisinopril 4. Hyponatremia, resolved, asymptomatic. Likely secondary to hypovolemia in setting of septic arthritis. PICC now in for 6 weeks of IV antibiotics at home in [place]. The stop date will be June 03. Patient was discharged home in stable condition. Status at Discharge Cognitive/behavioral status at discharge: oriented Functional status at discharge: independent ambulation Time Spent with Patient Time spent: Greater than 30 minutes Exam Vital Signs (past 8 hours): Oxygen Delivery Method Room Air Oxygen Flow Rate 0 Narrative Exam Narrative: He is alert and oriented x3, in no apparent distress. Heart is regular rate and rhythm without murmur. Lungs are CTA bilaterally. Abdomen is soft but distended, nontender, no organomegaly. Extremities have no ankle edema. The right wrist dressing and the right palm sutures are in place without abnormality. Objective Labs Result Diagrams: 04/26/19 06:27 04/25/19 06:36 Discharge Plan Discharge Plan Patient Disposition: Home Discharge comment: You were admitted to the hospital for an infection in your right wrist. You are being discharged with IV antibiotic therapy plan currently for 6 weeks. You will follow up with an infectious disease provider as well as Orthopedics, and the wound care clinic here. They are working on obtaining a wound VAC to place in clinic later this week. Until then please continue wet to dry dressings, and your antibiotics. Discharge Med Rec/Prescriptions Prescriptions: New cefazolin in dextrose (iso-os) 2 gram/100 mL Piggyback 2 gm IV Q8H 36 Days Qty: 108 RF: 0 hydromorphone 2 mg tablet 2 mg PO Q6H 7 Days Qty: 14 RF: 0 Continued lisinopril 40 mg tablet 40 mg PO DAILY RF: 0 metformin 500 mg tablet 500 mg PO BID Qty: 30 RF: 0 Discontinued prednisone 10 mg tablet See Rx Instructions .ROUTE .COMPLEX RF: 0 oxycodone-acetaminophen 10-325 mg tablet 1 tab PO Q6H PRN (Reason: pain) RF: 0 levofloxacin 750 mg tablet 750 mg PO DAILY RF: 0 Follow up/Referrals: Luis Goyal MD [Physician] - Maida Sanchez MD [Physician] - Provider Discharge Instructions Diet: Carb-consistent/Diabetic Activity: As tolerated Skin/Wound/Dressing Care Dressing: Wet to dry dressing changes R wrist until wound vac therapy can be started. Visit Report/Discharge Packet Instructions: DI for Constipation, Peripherally Inserted Central Catheter, DI for Postoperative Pain, Cefazolin Injection, DI for Incision and Drainage of a Joint Discharges patient from system. Discharge Date/Time: 04/28/19 17:45 Quality VTE Deep Vein Thrombosis/Pulmonary Embolism Present on Admission: No
[2019-06-27 15:06] LABS: Miscellaneous to Univ of WA SEE SEPARATE REPORTS
== END 2019-04-28 17:45 | disposition home or self-care (01) | DRG 316 ==
LOC: ED 15:45 → ICU 16:44 → AC 04-23 14:00 → ICU 04-23 17:23
PROVIDERS: Family Medicine; Nurse Practitioner Adult Health; Orthopaedic Surgery; Admitting Provider Internal Medicine; Emergency Provider Emergency Medicine; Visit Provider Internal Medicine
PROC: 0RBN0ZZ Excision of Right Wrist Joint, Open Approach (ICD-10-PCS; principal; 2019-04-22 16:45)
DX: M00.23 Other streptococcal arthritis, wrist (principal); B95.4 Other streptococcus as the cause of diseases classified elsewhere; L03.113 Cellulitis of right upper limb; M96.840 Postprocedural hematoma of a musculoskeletal structure following a musculoskeletal system procedure; N17.9 Acute kidney failure, unspecified; E87.1 Hypo-osmolality and hyponatremia; E11.9 Type 2 diabetes mellitus without complications; I10 Essential (primary) hypertension; F10.10 Alcohol abuse, uncomplicated; K59.00 Constipation, unspecified; F17.210 Nicotine dependence, cigarettes, uncomplicated; Z51.89 Encounter for other specified aftercare
CPT/HCPCS: 36415; 36569; 73110; 73201; 80048; 80053; 80202; 82009; 82805; 82962; 83036; 83605; 83690; 83735; 84100; 84145; 84550; 85014; 85018; 85025; 85651; 86140; 87040; 87070; 87075; 87205; 90471; 90656; 93306; 96374; 96375; 97110; 97161; 97165; 99283; 99284; 99406; J0690; J1170; J1644; J1885; J1956; J2270; J2405; J2704; J3010; Q2038; Q9967

== ENCOUNTER → 2019-04-29 15:02 | Outpatient (CLI) | payer OTHER, MEDICAID, SELFPAY ==
[2019-04-22 18:59] VITALS: BMI 24.0
== END ==
PROVIDERS: PCP Physician Assistant Medical; Visit Provider Family Medicine
DX: E11.628 Type 2 diabetes mellitus with other skin complications (principal); S61.501A Unspecified open wound of right wrist, initial encounter; D47.3 Essential (hemorrhagic) thrombocythemia; Z79.52 Long term (current) use of systemic steroids
CPT/HCPCS: 11042; 99203; 99213

== ENCOUNTER → 2019-05-01 15:17 | Outpatient (CLI) | payer OTHER, MEDICAID, SELFPAY ==
[2019-04-22 18:59] VITALS: BMI 24.0
== END ==
PROVIDERS: PCP Physician Assistant Medical; Visit Provider Family Medicine
DX: S61.501A Unspecified open wound of right wrist, initial encounter (principal); R60.0 Localized edema
CPT/HCPCS: 97605

== ENCOUNTER → 2019-05-06 15:30 | Outpatient (CLI) | payer OTHER, MEDICAID, SELFPAY ==
[2019-04-22 18:59] VITALS: BMI 24.0
== END ==
PROVIDERS: PCP Physician Assistant Medical; Visit Provider Family Medicine
DX: E11.628 Type 2 diabetes mellitus with other skin complications (principal); S61.501A Unspecified open wound of right wrist, initial encounter; D47.3 Essential (hemorrhagic) thrombocythemia; Z79.52 Long term (current) use of systemic steroids
CPT/HCPCS: 11042

== ENCOUNTER → 2019-05-13 15:37 | Outpatient (CLI) | payer OTHER, MEDICAID, SELFPAY ==
[2019-04-22 18:59] VITALS: BMI 24.0
[2019-05-13 17:15] LABS: Add Manual Diff / Slide Review NO; Basophils Absolute Auto 0 /uL (0-100); Basophils Percent Auto 0.7 % (0-2); Eosinophils Absolute Auto 100 /uL (0-450); Eosinophils Percent Auto 1.7 % (2-4); Hematocrit 30.1 % (41-53); Hemoglobin 9.9 g/dL (13.5-17.5); Lymphocytes Absolute Auto 1500 /uL (1100-4500); Lymphocytes Percent Auto 26.5 % (25-40); Mean Corpuscular HGB Conc 32.9 % (30-36); Mean Corpuscular Hemoglobin 28.3 PG (26-34); Mean Corpuscular Volume 86.1 fL (80-100); Monocytes Absolute Auto 600 /uL (0-900); Monocytes Percent Auto 10.3 % (3-14); Neutrophils Absolute Auto 3500 /uL (1500-7000); Neutrophils Percent Auto 60.8 % (50-75); Platelet Count 251 X10^3/uL (150-400); Red Blood Cell Count 3.49 X10^6/uL (4.5-5.9); Red Cell Distribution Width 15.4 % (11.6-14.8); White Blood Cell Count 5.8 X10^3/uL (4.5-11.0)
[2019-05-13 17:37] LABS: Erythrocyte Sedimentation Rate 52 MM/HR (0-15)
[2019-05-13 18:13] LABS: Blood Urea Nitrogen 10 mg/dL (9-20); C-Reactive Protein Quant 2.2 mg/dL (<1.0); Calcium 9.2 mg/dL (8.4-10.2); Carbon Dioxide 24 mmol/L (22-32); Chloride 106 mmol/L (98-107); Estimated Glomerular Filt Rate > 60.0 mL/min (>60); Glucose 85 mg/dL (70-100); HEMOLYSIS < 15 (0-50); Sodium 140 mmol/L (137-145)
== END ==
PROVIDERS: PCP Physician Assistant Medical; Visit Provider Family Medicine
DX: S61.501A Unspecified open wound of right wrist, initial encounter (principal); E11.622 Type 2 diabetes mellitus with other skin ulcer; D47.3 Essential (hemorrhagic) thrombocythemia; Z79.52 Long term (current) use of systemic steroids
CPT/HCPCS: 36415; 80048; 85025; 85651; 86140; 97597

== ENCOUNTER → 2019-05-20 15:15 | Outpatient (CLI) | payer OTHER, MEDICAID, SELFPAY ==
[2019-04-22 18:59] VITALS: BMI 24.0
== END ==
PROVIDERS: PCP Physician Assistant Medical; Visit Provider Family Medicine
DX: S61.501A Unspecified open wound of right wrist, initial encounter (principal); E11.622 Type 2 diabetes mellitus with other skin ulcer
CPT/HCPCS: 97597

== ENCOUNTER → 2019-05-27 15:19 | Outpatient (CLI) | payer OTHER, MEDICAID, SELFPAY ==
[2019-04-22 18:59] VITALS: BMI 24.0
== END ==
PROVIDERS: PCP Physician Assistant Medical; Visit Provider Family Medicine
DX: E11.622 Type 2 diabetes mellitus with other skin ulcer (principal); S61.501A Unspecified open wound of right wrist, initial encounter; R60.0 Localized edema
CPT/HCPCS: 97597; 99213

== ENCOUNTER → 2020-01-14 14:07 | Outpatient (CLI) | payer OTHER, MEDICAID, SELFPAY ==
[2019-04-22 18:59] VITALS: BMI 24.0
[2020-01-14 15:36] LABS: Add Manual Diff / Slide Review NO; Basophils Absolute Auto 0 /uL (0-100); Basophils Percent Auto 0.4 % (0-2); Eosinophils Absolute Auto 100 /uL (0-450); Eosinophils Percent Auto 1.1 % (2-4); Hematocrit 38.1 % (41-53); Hemoglobin 12.4 g/dL (13.5-17.5); Lymphocytes Absolute Auto 1500 /uL (1100-4500); Lymphocytes Percent Auto 20.1 % (25-40); Mean Corpuscular HGB Conc 32.5 % (30-36); Monocytes Absolute Auto 600 /uL (0-900); Monocytes Percent Auto 8.1 % (3-14); Neutrophils Absolute Auto 5300 /uL (1500-7000); Neutrophils Percent Auto 70.3 % (50-75); Platelet Count 284 X10^3/uL (150-400); Red Blood Cell Count 4.59 X10^6/uL (4.5-5.9); Red Cell Distribution Width 17.8 % (11.6-14.8); White Blood Cell Count 7.5 X10^3/uL (4.5-11.0)
[2020-01-14 16:00] LABS: C-Reactive Protein Quant 2.6 mg/dL (<1.0)
[2020-01-14 16:08] LABS: Erythrocyte Sedimentation Rate 15 MM/HR (0-15)
== END ==
PROVIDERS: PCP Physician Assistant Medical; Referring Provider Orthopaedic Surgery; Visit Provider Orthopaedic Surgery
DX: M00.831 Arthritis due to other bacteria, right wrist (principal); Z98.890 Other specified postprocedural states
CPT/HCPCS: 36415; 85025; 85651; 86140